=== PATIENT | female | born 1960 | race Caucasian/White ===

== ENCOUNTER 2021-06-12 10:42 | Inpatient (IN) ==
[2021-06-12] MEDS ORDERED: 0.9 % SODIUM CHLORIDE 500 ML IV ONE (11:47)
[2021-06-12 12:23] LABS: POC Blood Urea Nitrogen 41 mg/dL (6-20); POC CO2 25 mmol/L (22-30); POC Calcium, Ionized 1.22 mmEq/L (1.16-1.32); POC Chloride 103 mEq/L (96-108); POC Creatinine 1.7 mg/dL (0.6-1.2); POC Glucose, Random 100 mg/dL (70-105); POC Hematocrit 40 % (36-48); POC Sodium 139 mEq/L (133-145)
--- NOTE | 2021-06-12 12:32 | Emergency Department Note ---
Weakness HPI General Chief complaint: Weakness Stated complaint: slurred speech, frequent falls x 1 month. Time Seen by Provider: 06/12/21 11:47 Source: patient Mode of arrival: ambulatory Limitations: no limitations History of Present Illness HPI Narrative: This a 61-year-old female patient with history of OSVALDO noncompliant with CPAP, T2DM, hyperlipidemia, and CAD status post stent to the OM in the remote past who presents to the ER with 1 month of weakness and increasing recurrent falls up to 4 times a day. notes that she falls asleep very easily and she feels that her falls are secondary to tiredness. She denies lightheadedness or dizziness preceding her falls. Denies heart palpitations. Denies chest pain. Patient has a history of CAD with stenting to the obtuse marginal in the remote past. 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 She does note that she has increasing lower extremity edema. She does take Lasix daily. Other medications include antihypertensives, statin, and metformin. She notes that her depression was quite severe several months ago and she was started on citalopram. She did not tolerate this secondary to drowsiness. She has been afraid to drive due to her issues with falling asleep. EKG shows normal sinus rhythm with a rate of 69 bpm she has a first-degree AV block. She has nonspecific ST changes in the precordial leads with T wave inversions noted in V1 through V6. I do not have an old EKG review. Smokes daily marijuana. Related Data Home Medications Medication Instructions Recorded Confirmed aspirin 81 mg chewable tablet 81 mg PO QDAY 07/12/17 05/28/21 cholecalciferol (vitamin D3) 50 50 mcg PO QDAY 11/17/20 05/28/21 mcg (2,000 unit) capsule zinc 50 mg tablet 50 mg PO QDAY 11/17/20 05/28/21 citalopram 10 mg tablet 5 mg PO QDAY tab 12/07/20 05/28/21 Previous Rx's Medication Instructions Recorded atorvastatin 80 mg tablet 80 mg PO QDAY #90 tab 06/08/20 candesartan 4 mg tablet 4 mg PO QDAY #90 tab 08/30/20 furosemide 20 mg tablet See Rx Instructions .ROUTE 03/09/21 .COMPLEX #30 tab metoprolol tartrate 25 mg tablet See Rx Instructions .ROUTE 03/26/21 .COMPLEX #90 tab gabapentin 100 mg capsule 600 mg PO QHS #180 cap 05/11/21 lorazepam 1 mg tablet 1 mg PO QHS #30 tab 05/11/21 metformin 500 mg tablet 500 mg PO QDAY #30 tab 05/22/21 Allergies Allergy/AdvReac Type Severity Reaction Status Date / Time No Known Drug Allergies Allergy Verified 05/28/21 09:47 Review of Systems ROS ROS Narrative: Narrative: All systems ED: reviewed and negative except as stated. [facility] Narrative Patient History Narrative: Narrative: Medical/Surgical/Family History All Active Problems (Updated 06/12/21 @ 16:59 by Skye Covarrubias PA-C) OSVALDO (obstructive sleep apnea) (Acute) Acute respiratory failure with hypoxia and hypercarbia (Acute) CHF (congestive heart failure) (Acute) Peripheral edema (Acute) Hypercalcemia (Acute) Ecchymosis (Acute) Shoulder pain (Acute) Blepharitis (Acute) Major depressive disorder (Chronic) Hot flashes due to menopause (Chronic) Renal insufficiency (Chronic) Nausea (Chronic) Decreased libido (Chronic) OSVALDO (obstructive sleep apnea) (Chronic) CAD (coronary artery disease) (Chronic) Atherosclerotic heart disease of tribe coronary artery without angina pectoris (Chronic) Essential hypertension (Chronic) 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) Pre-diabetes (Chronic) IFG (impaired fasting glucose) (Chronic) Hyperlipidemia (Chronic) 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, unspecified (Chronic) Lesion of plantar nerve, left lower limb (Chronic) Medical History (Updated 06/12/21 @ 16:59 by Skye Covarrubias PA-C) Acute kidney injury Atherosclerotic heart disease of tribe coronary artery without angina pectoris CAD (coronary artery disease) 2 stints, 2005, 2012 CKD (chronic kidney disease) stage 3, GFR 30-59 ml/min Decreased libido resolved 02/08/16 Deficiency of other specified B group vitamins Essential hypertension Hereditary and idiopathic neuropathy, unspecified Hot flashes due to menopause Hyperlipidemia IFG (impaired fasting glucose) Lesion of plantar nerve, left lower limb Major depressive disorder Nausea resolved 02/08/16 OSVALDO (obstructive sleep apnea) Pre-diabetes Renal insufficiency resolved 07/29/18 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 Urinary tract infection Surgical History Acquired absence of both cervix and uterus Acquired absence of both ovaries History of appendectomy (~1985) History of blepharoplasty (~2015) History of cholecystectomy (~1985) History of surgery (~2005) stent placement, 2005 and 2012 History of tonsillectomy and adenoidectomy History of total abdominal hysterectomy and bilateral salpingo-oophorectomy (~2007) Status post debridement of bone spur (~2009) heel Family History Father , age 72 Diabetes mellitus COPD (chronic obstructive pulmonary disease) CHF (congestive heart failure) Alcoholism Heart disease Hypertension Mother , age 62 Lung cancer Grandfather Multiple sclerosis Paternal Lung cancer Maternal Grandmother COPD (chronic obstructive pulmonary disease) Paternal Son Down's syndrome Social History Smoking Status: Former smoker Alcohol Intake Frequency: a few times a week Substance Use: marijuana Exam Narrative Narrative: General: AOx3, NAD, sleepy but arousable. Pleasant and conversant. HEENT: PERRL, EOMI, normocephalic. Ecchymosis to the right orbit and nose consistent with fall. Moist mucous membranes. Normal facies and normal dentition. Chest: Symmetric, no pain to palpation Respiratory: Bilateral crackles. No respiratory distress. Unlabored breathing. Audible cough Heart: Regular rate and rhythm, no murmurs/clicks/rubs. Abdomen: Non-tender, Non distended, normal bowel tones. No organomegaly. Extremities: Warm and well perfused. Bilateral 2+ pitting edema. DP 2+ bilaterally. No venous stasis. Neuro: No focal deficits. Cranial nerves II-XII grossly normal. Skin: Warm dry, no rashes or lesions, no cyanosis. Psych: Normal mood and affect Heme/Lymph: No abnormal bruising General Limitations: no limitations Course Course Course Narrative: 61-year-old female presents for frequent falls and weakness Reevaluation(s) Reevaluation #1: CBC, CMP, chest x-ray, TSH, UA Reevaluation #2: CBC without leukocytosis. CMP with no electrolyte disturbances and creatinine 1.7, this is baseline from last year. TSH is within normal limits. Chest x-ray shows pulmonary edema consistent with heart failure. Urinalysis is completely normal. Head imaging and neck imaging are negative for acute fractures or intracranial bleeding. Patiently consistently dips down into the high 80s on room air while sleeping. Patient's VBG shows a pH of 7.28 and a PCO2 of 56. Give 40 mg IV Lasix for acute CHF exacerbation. I have reached out the hospitalist for admission if she is not safe to discharge home with frequent falls and untreated severe sleep apnea with hypercarbia. Reevaluation #3: I spoke with Dr. Caro and he request that I check a troponin and start her on BiPAP. He is planning to accept the patient for admission as long as her troponin is not greatly elevated. Vital Signs Vital signs: Vital Signs Temperature 97.3 F 06/12/21 10:43 Pulse Rate 73 06/12/21 10:43 Respiratory Rate 20 06/12/21 10:43 Blood Pressure 136/82 06/12/21 10:43 Pulse Oximetry (%) 88 L 06/12/21 10:43 Temperature 97.3 F 06/12/21 10:43 Pulse Rate 75 06/12/21 17:47 Respiratory Rate 16 06/12/21 17:47 Blood Pressure 105/67 06/12/21 17:46 Pulse Oximetry (%) 96 06/12/21 17:47 [facility] MDM Narrative Medical decision making narrative: Severe untreated OSVALDO Hypercarbia Respiratory acidosis Acute CHF exacerbation Patient has been given 40 mg of IV Lasix for volume overload. She is currently on CPAP and tolerating this. Head and cervical neck imaging were negative for acute fractures or intracranial bleeding. I have spoken with the hospitalist who has accepted the patient for admission. Lab Data Result diagrams: 06/12/21 12:03 Labs: Lab Results 06/12/21 06/12/21 06/12/21 Range/Units 12:00 12:02 12:03 WBC 6.8 (4.5-11.0) K/mcL RBC 3.77 (3.59-5.38) M/mcL Hgb 12.4 (11.2-15.7) g/dL Hct 38.6 (34.1-44.9) % POC Hct 40 (36-48) % MCV 102.4 H (80.0-100.0) fL MCH 32.9 (26.0-34.0) pg MCHC 32.1 (31.0-36.0) g/dL RDW 16.2 H (11.5-14.5) % Plt Count 131 L (140-440) K/mcL MPV 11.0 H (7.4-10.4) fL Neut % (Auto) 69.1 (38.0-78.0) % Lymph % (Auto) 18.6 (15.5-49.0) % [place] % (Auto) 10.2 (1.0-12.0) % Eos % (Auto) 1.2 (0.0-7.0) % Baso % (Auto) 0.9 (0.0-2.0) % Lymph # (Auto) 1.26 L (1.50-4.80) K/mcL [place] # (Auto) 0.69 (0.10-0.90) K/mcL Eos # (Auto) 0.08 (0.00-0.70) K/mcL Baso # (Auto) 0.06 (0.00-0.30) K/mcL Absolute Neutrophils 4.67 (1.80-8.00) K/mcL POC Sodium 139 (133-145) mEq/L POC Potassium 5.0 (3.3-5.1) mEql/L POC Chloride 103 (96-108) mEq/L POC Total CO2 25 (22-30) mmol/L POC BUN 41 H (6-20) mg/dL POC Creatinine 1.7 H (0.6-1.2) mg/dL POC Glucose 100 (70-105) mg/dL POC WB Ioniz Calcium 1.22 (1.16-1.32) mmEq/L NT-Pro-B Natriuret Pep 5093.0 H (<125.0) pg/mL TSH (0.27-5.01) uIU/mL Urine Color Urine Appearance (Clear) Urine pH (5.0-9.0) Ur Specific Salmon (1.000-1.035) Urine Protein (Negative) mg/dL Urine Glucose (UA) (Negative) mg/dL Urine Ketones (Negative) mg/dL Urine Occult Blood (Negative) mg/dL Urine Nitrate (Negative) Urine Bilirubin (Negative) mg/dL Urine Urobilinogen mg/dL Ur Leukocyte Esterase (Negative) /uL Ur Culture Indicated? POC Troponin I (0.02-0.08) ng/mL 06/12/21 06/12/21 06/12/21 Range/Units 12:03 13:05 16:13 WBC (4.5-11.0) K/mcL RBC (3.59-5.38) M/mcL Hgb (11.2-15.7) g/dL Hct (34.1-44.9) % POC Hct (36-48) % MCV (80.0-100.0) fL MCH (26.0-34.0) pg MCHC (31.0-36.0) g/dL RDW (11.5-14.5) % Plt Count (140-440) K/mcL MPV (7.4-10.4) fL Neut % (Auto) (38.0-78.0) % Lymph % (Auto) (15.5-49.0) % [place] % (Auto) (1.0-12.0) % Eos % (Auto) (0.0-7.0) % Baso % (Auto) (0.0-2.0) % Lymph # (Auto) (1.50-4.80) K/mcL [place] # (Auto) (0.10-0.90) K/mcL Eos # (Auto) (0.00-0.70) K/mcL Baso # (Auto) (0.00-0.30) K/mcL Absolute Neutrophils (1.80-8.00) K/mcL POC Sodium (133-145) mEq/L POC Potassium (3.3-5.1) mEql/L POC Chloride (96-108) mEq/L POC Total CO2 (22-30) mmol/L POC BUN (6-20) mg/dL POC Creatinine (0.6-1.2) mg/dL POC Glucose (70-105) mg/dL POC WB Ioniz Calcium (1.16-1.32) mmEq/L NT-Pro-B Natriuret Pep (<125.0) pg/mL TSH 2.65 (0.27-5.01) uIU/mL Urine Color Yellow Urine Appearance Clear (Clear) Urine pH 6.0 (5.0-9.0) Ur Specific Salmon 1.009 (1.000-1.035) Urine Protein Negative (Negative) mg/dL Urine Glucose (UA) Negative (Negative) mg/dL Urine Ketones Negative (Negative) mg/dL Urine Occult Blood Negative (Negative) mg/dL Urine Nitrate Negative (Negative) Urine Bilirubin Negative (Negative) mg/dL Urine Urobilinogen Negative mg/dL Ur Leukocyte Esterase Negative (Negative) /uL Ur Culture Indicated? No POC Troponin I 0.02 (0.02-0.08) ng/mL ED POC Tests ED POC Tests: OTTO - SARS Antigen Negative Discharge Plan Patient/Caregiver Discharge Instructions Pt seen by CANDY PULLER/PA only: Yes Clinical Impression: OSVALDO (obstructive sleep apnea), Acute respiratory failure with hypoxia and hypercarbia, CHF (congestive heart failure) Patient Disposition: Still a Patient Condition: Fair Follow up with: Piter Mohan DO [Primary Care Provider] - Prescriptions: No Action atorvastatin 80 mg tablet 80 mg PO QDAY Qty: 90 2RF candesartan 4 mg tablet 4 mg PO QDAY Qty: 90 2RF furosemide 20 mg tablet See Rx Instructions .ROUTE .COMPLEX Qty: 30 4RF Dose Instruction: TAKE ONE-HALF TABLET BY MOUTH ONCE DAILY EVERY MORNING Rx Instructions: TAKE ONE-HALF TABLET BY MOUTH ONCE DAILY EVERY MORNING metoprolol tartrate 25 mg tablet See Rx Instructions .ROUTE .COMPLEX Qty: 90 0RF Dose Instruction: TAKE 1 TABLET BY MOUTH TWICE DAILY Rx Instructions: TAKE 1 TABLET BY MOUTH TWICE DAILY lorazepam 1 mg tablet 1 mg PO QHS Qty: 30 2RF gabapentin 100 mg capsule 600 mg PO QHS Qty: 180 1RF Rx Instructions: Take 1-6 capsules by mouth once daily at bedtime for nerve pain metformin 500 mg tablet 500 mg PO QDAY Qty: 30 3RF aspirin 81 mg tablet,chewable 81 mg PO QDAY 0RF zinc 50 mg tablet 50 mg PO QDAY 0RF cholecalciferol (vitamin D3) 50 mcg (2,000 unit) capsule 50 mcg PO QDAY 0RF citalopram 10 mg tablet 5 mg PO QDAY 0RF
--- NOTE | 2021-06-12 12:32 | Cat Scan Report ---
CLINICAL INFORMATION: Trauma-fall COMPARISON: 12/17/2013 TECHNIQUE: 2.5 mm helical slices were obtained in the skull base to vertex. Following reconstruction, axial reformatted images were reviewed at bone and parenchymal windows. The exam was performed using radiation dose optimization techniques including, but not limited to, automated exposure control, adjustment of the mA and/or kV according to patient size and use of iterative reconstruction technique. FINDINGS: The ventricles, sulci, fissures, and cisterns are symmetrically enlarged compatible with mild age-related atrophy. No extra-axial fluid collections are identified. Mild patchy chronic ischemic changes, in the deep cerebral white matter, are expected for age. There is no hemorrhage, mass effect, or edema. Bone windows show no osseous abnormality. IMPRESSION: Mild atrophy and chronic ischemic changes in the deep cerebral white matter-expected for age and stable. No acute findings Interpreted and Authenticated by: Brandyn Bailon 06/12/21
--- NOTE | 2021-06-12 12:41 | Cat Scan Report ---
CLINICAL INFORMATION: Trauma-fall COMPARISON: None. TECHNIQUE: 0.625 mm axial slices were obtained through the facial region. Following reconstruction, 2.5 millimeter axial, sagittal and coronal reformations were obtained and reviewed in bone and soft tissue windows.The exam was performed using radiation dose optimization techniques including, but not limited to, automated exposure control, adjustment of the mA and/or kV according to patient size and use of iterative reconstruction technique. FINDINGS: There is no fracture within the facial skeleton or the visualized calvaria. The orbits including the ocular globes intra and extraconal fat, optic nerves and extraocular muscles are unremarkable. The paranasal sinuses show only minimal mucosal thickening in the left maxillary air cell. Mild leftward nasal septal deviation and mild mucosal thickening in nasal septum and turbinates. TMJs are normal in width and alignment without arthritic change. Soft tissues show calcific plaque in the carotid bifurcations. There is also heavy ossification of the stylohyoid ligaments. IMPRESSION: 1. No fracture or posttraumatic change. 2. Mild rhinitis. 3. Ossification of stylohyoid ligaments. 4. Chronic bifurcation calcification-please correlate with bruit Interpreted and Authenticated by: Brandyn Bailon 06/12/21
--- NOTE | 2021-06-12 12:46 | Cat Scan Report ---
CLINICAL INFORMATION: Trauma-fall COMPARISON: None. TECHNIQUE: 0.625 mm helical slices were obtained from the skull base through the superior T2 end plate, and following reconstruction, 2.5 mm sagittal, coronal and axial reformations were then processed. The exam was reviewed at bone and soft tissue windows. The exam was performed using radiation dose optimization techniques including, but not limited to, automated exposure control, adjustment of the mA and/or kV according to patient size and use of iterative reconstruction technique. FINDINGS: The cervical spine is normal in curvature and alignment. There is no fracture or other osseous abnormality. Soft tissues show heavy calcification of stylohyoid ligament. There is also moderate calcific plaque in the carotid bifurcations. No posttraumatic change seen within the soft tissues. The C2-3, C3-4, C4-5 disc levels are normal. At C5-6, mild broad disc protrusion mildly impinges the anterior thecal sac. A 10 x 8 mm dural-based mass, adjacent to the left posterior C6 vertebral body, extends into the left lateral recess. It demonstrates peripheral rim calcification with low attenuation centrally. It is suspicious for a meningioma or less likely neurofibroma or partially calcified disc fragment. It should impinge the exiting left C7 nerve root. C7-T1 disc level is normal. IMPRESSION: 1. No fracture or posttraumatic change. 2. 10 x 8 mm dural-based mass, adjacent to the posterior left C5 vertebral body, impinging the exiting left C7 nerve root. It is suspicious for a meningioma. Neurofibroma or partially calcified disc fragment be less likely. If the patient is a surgical candidate, consider cervical MRI with gadolinium 3. Multilevel degeneration Interpreted and Authenticated by: Brandyn Bailon 06/12/21
[2021-06-12 12:48] LABS: Basophils # (Auto) 0.06 K/mcL (0.00-0.30); Basophils % (Auto) 0.9 % (0.0-2.0); Eosinophils # (Auto) 0.08 K/mcL (0.00-0.70); Eosinophils % (Auto) 1.2 % (0.0-7.0); Hematocrit 38.6 % (34.1-44.9); Hemoglobin 12.4 g/dL (11.2-15.7); Lymphocytes # (Auto) 1.26 K/mcL (1.50-4.80); Lymphocytes % (Auto) 18.6 % (15.5-49.0); Mean Cell Volume 102.4 fL (80.0-100.0); Mean Corpuscular HGB Conc 32.1 g/dL (31.0-36.0); Monocytes # (Auto) 0.69 K/mcL (0.10-0.90); Monocytes % (Auto) 10.2 % (1.0-12.0); Neutrophils % (Auto) 69.1 % (38.0-78.0); Platelet Count 131 K/mcL (140-440); RBC 3.77 M/mcL (3.59-5.38); Red Cell Distribution Width 16.2 % (11.5-14.5); WBC 6.8 K/mcL (4.5-11.0)
--- NOTE | 2021-06-12 12:48 | XRay Report ---
CLINICAL INFORMATION: Trauma COMPARISON: 10/26/2010 TECHNIQUE: PA and Lateral views FINDINGS: Moderate cardiomegaly is new since the remote x-ray. Mediastinum is otherwise normal. The upper lobe pulmonary vessels show slight cephalization. Minimal interstitial edema is seen in the periphery of the lower lobes. Small right pleural effusion noted. IMPRESSION: Borderline CHF. No posttraumatic change Interpreted and Authenticated by: Brandyn Bailon 06/12/21
[2021-06-12] MEDS ORDERED: FUROSEMIDE 40 MG/4 ML VIAL IV ONE (14:12)
[2021-06-12 14:28] LABS: Appearance,Urine CLEAR (Clear); Bilirubin,Urine Negative (Negative); Color,Urine YELLOW; Culture Indicated,Urine No; Glucose,Urine (UA) Negative (Negative); Ketones,Urine Negative (Negative); Leukocyte Esterase,Urine Negative /uL (Negative); Nitrate,Urine Negative (Negative); Protein,Urine Negative (Negative); Specific Gravity,Urine 1.009 (1.000-1.035); Urine Blood Negative (Negative); Urobilinogen,Urine Negative
--- NOTE | 2021-06-12 17:42 | Internal Med History&Physical ---
HPI History of Present Illness Patient information: Note initiated : 06/12/21 at 5:41 pm Service Date, if different from initiated Date: [] Patient: Margarita Guzman a 61 y/o F admitted on for slurred speech, frequent falls x 1 month.. Chief Complaint: [] History of present illness: Ms. Guzman is a 61 year old female with a history of chronic kidney disease stage III, coronary artery disease status post stent, congestive heart failure on Lasix, type 2 diabetes mellitus, depression, untreated obstructive sleep apnea who presented to the emergency department for generalized weakness, multiple falls and feeling extremely tired. The patient is unable to provide a history in the emergency department as she was sleeping soundly. History was taken from the patient's family member who was at the patient's bedside. The patient's symptoms have been progressively worsening for about 4 weeks. In addition, the patient has been having bilateral lower extremity edema for about the same period of time. She has had multiple falls and suffered minor injuries. In the emergency department, the patient had an oxygen requirement while she was sleeping. Vitals were otherwise unremarkable. CBC was negative for leukocytosis, no anemia, platelets were 131. Wcigv-ey-utma creatinine was 1.7, BUN was 41. NT proBNP was elevated at 5093, troponin was normal. Venous blood gas showed a respiratory acidosis with a pH of 7.28, pCO2 of 56.EKG just showed normal sinus rhythm, negative for acute ischemic changes. Chest x-ray was read by radiology and interpreted as borderline congestive heart failure. Additionally the patient had a cervical spine CT, facial and head CT which did not show any fractures or acute changes.the cervical spine CT showed a 8 x 10 mm dural based mass adjacent to the posterior left C5 vertebral body impinging on the exiting left C7 nerve root likely a meningioma. Hospital medicine was consulted for admission. Review of systems: Unable to obtain due to extreme lethargy Physical exam Head: Atraumatic, normal inspection. Eyes: normal appearance, no scleral icterus. Neck: full ROM Respiratory: BiPAP, no respiratory distress. Cardiovascular: normal rate and rhythm, S1, S2. GI/Abdominal: Obesely distended, soft, nontender, no guarding. Extremities: Bilateral lower extremity pitting edema Neurological: CN II-XII intact, intact motor, intact sensation. Psychiatric: normal mood. Skin: warm, normal color PFSH PFSH All Active Problems (Updated 06/12/21 @ 16:59 by Skye Covarrubias PA-C) OSVALDO (obstructive sleep apnea) (Acute) Acute respiratory failure with hypoxia and hypercarbia (Acute) CHF (congestive heart failure) (Acute) Peripheral edema (Acute) Hypercalcemia (Acute) Ecchymosis (Acute) Shoulder pain (Acute) Blepharitis (Acute) Major depressive disorder (Chronic) Hot flashes due to menopause (Chronic) Renal insufficiency (Chronic) Nausea (Chronic) Decreased libido (Chronic) OSVALDO (obstructive sleep apnea) (Chronic) CAD (coronary artery disease) (Chronic) Atherosclerotic heart disease of [place] coronary artery without angina pectoris (Chronic) Essential hypertension (Chronic) 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) Pre-diabetes (Chronic) IFG (impaired fasting glucose) (Chronic) Hyperlipidemia (Chronic) 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, unspecified (Chronic) Lesion of plantar nerve, left lower limb (Chronic) Medical History (Updated 06/12/21 @ 16:59 by Skye Covarrubias PA-C) Acute kidney injury Atherosclerotic heart disease of [place] coronary artery without angina pectoris CAD (coronary artery disease) 2 stints, 2005, 2012 CKD (chronic kidney disease) stage 3, GFR 30-59 ml/min Decreased libido resolved 02/08/16 Deficiency of other specified B group vitamins Essential hypertension Hereditary and idiopathic neuropathy, unspecified Hot flashes due to menopause Hyperlipidemia IFG (impaired fasting glucose) Lesion of plantar nerve, left lower limb Major depressive disorder Nausea resolved 02/08/16 OSVALDO (obstructive sleep apnea) Pre-diabetes Renal insufficiency resolved 07/29/18 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 Urinary tract infection Surgical History Acquired absence of both cervix and uterus Acquired absence of both ovaries History of appendectomy (~1985) History of blepharoplasty (~2015) History of cholecystectomy (~1985) History of surgery (~2005) stent placement, 2005 and 2012 History of tonsillectomy and adenoidectomy History of total abdominal hysterectomy and bilateral salpingo-oophorectomy (~2007) Status post debridement of bone spur (~2009) heel Family History Father , age 72 Diabetes mellitus COPD (chronic obstructive pulmonary disease) CHF (congestive heart failure) Alcoholism Heart disease Hypertension Mother , age 62 Lung cancer Grandfather Multiple sclerosis Paternal Lung cancer Maternal Grandmother COPD (chronic obstructive pulmonary disease) Paternal Son Down's syndrome Social History marital status: alcohol intake frequency: a few times a week substance use type: marijuana MEDS/ALLERGIES Home Medications and Allergies Home Medications Medication Instructions Recorded Confirmed Type aspirin 81 mg chewable tablet 81 mg PO QDAY 07/12/17 05/28/21 History atorvastatin 80 mg tablet 80 mg PO QDAY #90 tab 06/08/20 05/28/21 Rx candesartan 4 mg tablet 4 mg PO QDAY #90 tab 08/30/20 05/28/21 Rx cholecalciferol (vitamin D3) 50 50 mcg PO QDAY 11/17/20 05/28/21 History mcg (2,000 unit) capsule zinc 50 mg tablet 50 mg PO QDAY 11/17/20 05/28/21 History citalopram 10 mg tablet 5 mg PO QDAY tab 12/07/20 05/28/21 History furosemide 20 mg tablet See Rx Instructions .ROUTE 03/09/21 05/28/21 Rx .COMPLEX #30 tab metoprolol tartrate 25 mg tablet See Rx Instructions .ROUTE 03/26/21 05/28/21 Rx .COMPLEX #90 tab gabapentin 100 mg capsule 600 mg PO QHS #180 cap 05/11/21 05/28/21 Rx lorazepam 1 mg tablet 1 mg PO QHS #30 tab 05/11/21 05/28/21 Rx metformin 500 mg tablet 500 mg PO QDAY #30 tab 05/22/21 05/28/21 Rx Allergies Allergy/AdvReac Type Severity Reaction Status Date / Time No Known Drug Allergies Allergy Verified 05/28/21 09:47 EXAM Constitutional Vitals: Temp Pulse Resp BP Pulse Ox 97.3 F 78 15 114/66 93 06/12/21 10:43 06/12/21 16:31 06/12/21 16:31 06/12/21 16:31 06/12/21 16:31 DATA Data Completed and Pending Labs: Labs from last 24 hours 06/12/21 06/12/21 06/12/21 16:13 13:05 12:03 WBC RBC Hgb Hct POC Hct MCV MCH MCHC RDW Plt Count MPV Neut % (Auto) Lymph % (Auto) [place] % (Auto) Eos % (Auto) Baso % (Auto) Lymph # (Auto) [place] # (Auto) Eos # (Auto) Baso # (Auto) Absolute Neutrophils POC Sodium POC Potassium POC Chloride POC Total CO2 POC BUN POC Creatinine POC Glucose POC WB Ioniz Calcium NT-Pro-B Natriuret Pep TSH 2.65 Urine Color Yellow Urine Appearance Clear Urine pH 6.0 Ur Specific [place] 1.009 Urine Protein Negative Urine Glucose (UA) Negative Urine Ketones Negative Urine Occult Blood Negative Urine Nitrate Negative Urine Bilirubin Negative Urine Urobilinogen Negative Ur Leukocyte Esterase Negative Ur Culture Indicated? No POC Troponin I 0.02 06/12/21 06/12/21 06/12/21 12:03 12:02 12:00 WBC 6.8 RBC 3.77 Hgb 12.4 Hct 38.6 POC Hct 40 MCV 102.4 H MCH 32.9 MCHC 32.1 RDW 16.2 H Plt Count 131 L MPV 11.0 H Neut % (Auto) 69.1 Lymph % (Auto) 18.6 [place] % (Auto) 10.2 Eos % (Auto) 1.2 Baso % (Auto) 0.9 Lymph # (Auto) 1.26 L [place] # (Auto) 0.69 Eos # (Auto) 0.08 Baso # (Auto) 0.06 Absolute Neutrophils 4.67 POC Sodium 139 POC Potassium 5.0 POC Chloride 103 POC Total CO2 25 POC BUN 41 H POC Creatinine 1.7 H POC Glucose 100 POC WB Ioniz Calcium 1.22 NT-Pro-B Natriuret Pep 5093.0 H TSH Urine Color Urine Appearance Urine pH Ur Specific [place] Urine Protein Urine Glucose (UA) Urine Ketones Urine Occult Blood Urine Nitrate Urine Bilirubin Urine Urobilinogen Ur Leukocyte Esterase Ur Culture Indicated? POC Troponin I A/P Narrative A/P Narrative: Assessment: 61 year old female with a history of chronic kidney disease stage III, coronary artery disease status post stent, congestive heart failure on Lasix, type 2 diabetes mellitus, depression, untreated obstructive sleep apnea who presented to the emergency department for generalized weakness, multiple falls and feeling extremely tired. In the ED, the patient was found to have respiratory acidosis and bilateral lower extremity concerning for heart failure. #Respiratory acidosis, possibly a chronic #Acute on chronic congestive heart failure #Concern for right-sided heart failure #Generalized weakness and fatigue #Chronic kidney disease stage III #Type 2 diabetes mellitus #Coronary artery disease, stable #Depression #Obstructive sleep apnea, untreated #Obesity BMI 32 Plan -Start Lasix 40 mg IV twice daily. -BiPAP for now, repeat VBG. -Oxygen supplementation as needed. -Monitor volume status, urine output, renal function. -Check a D-dimer and TSH. -Correction Humalog SSI-low. -Transthoracic echocardiogram. -Home medication reconciliation, resume essential meds. 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 -Low-sodium diet. -PT consult. -DVT prophylaxis: Heparin SQ -CODE STATUS: Full -Disposition: Home when stable, probably referral to cardiology. Time Spent With Patient Time: Total time spent is greater than 50% in coordination of care (as documented) at patient's floor/unit and/or counseling patient:
[2021-06-12] MEDS ORDERED: DEXTROSE 31 GM ORAL.SUSP PO PRN (19:38)
[2021-06-12] MEDS ORDERED: ALBUTEROL SULFATE 2.5 MG/3 ML NEBULIZER NEB PRN (19:38)
[2021-06-12] MEDS ORDERED: DEXTROSE 50% 50 ML VIAL IV PRN (19:38)
[2021-06-12] MEDS ORDERED: ACETAMINOPHEN 325 MG TABLET PO PRN (19:38)
[2021-06-12] MEDS ORDERED: SENNOSIDES 1 TABLET PO PRN (19:38)
[2021-06-12] MEDS ORDERED: LACTULOSE 20 GM/30 ML ORAL.SOL PO PRN (19:38)
[2021-06-12] MEDS: FUROSEMIDE 40 MG/4 ML VIAL IV SCH (20:11)
[2021-06-12] MEDS ORDERED: LORazepam 1 MG TABLET PO PRN (21:00)
[2021-06-12] MEDS: HEPARIN 5,000 UNIT/ML VIAL SQ SCH (21:41)
[2021-06-12] MEDS: DOCUSATE SODIUM 100 MG CAPSULE PO SCH (21:41)
[2021-06-12] MEDS: 0.9 % SODIUM CHLORIDE 10 ML SYRINGE IV SCH (21:41)
[2021-06-12] MEDS: INSULIN LISPRO 1 UNIT/0.01 ML UNIT SQ SCH (21:53)
[2021-06-12] MEDS ORDERED: GABAPENTIN 400 MG CAPSULE PO ONE (22:06)
[2021-06-12] MEDS ORDERED: LORazepam 1 MG TABLET ONE (22:15)
[2021-06-12] MEDS ORDERED: GABAPENTIN 100 MG CAPSULE PO ONE (22:34)
[2021-06-12] MEDS ORDERED: GABAPENTIN 300 MG CAPSULE ONE (22:34)
[2021-06-13 06:14] LABS: ABG Methemoglobin 0.2 % (0.4-1.5); Total Hemoglobin 12.4 gm/Dl (12.0-15.0); VBG Base Excess 1 (-2-3); VBG HCO3 26.2 mmol/L (24.0-28.0); VBG PCO2 43.3 mmHg (41.0-51.0); VBG PO2 74.5 mmHg (25.0-40.0); VBG Total CO2 27.5 mmol/L (25.0-29.0)
[2021-06-13 06:34] LABS: Albumin 2.7 gm/dL (3.2-5.2); Blood Urea Nitrogen 33 mg/dL (8-23); Calcium 8.4 mg/dL (8.6-10.4); Carbon Dioxide 25 mmol/L (22-30); Chloride 104 mmol/L (96-108); Glomerular Filtration Rate 54; Glucose 85 mg/dL (70-105); Phosphorous 3.4 mg/dL (2.5-4.5)
[2021-06-13 06:40] LABS: Basophils # (Auto) 0.03 K/mcL (0.00-0.30); Basophils % (Auto) 0.5 % (0.0-2.0); Eosinophils # (Auto) 0.11 K/mcL (0.00-0.70); Hemoglobin 11.3 g/dL (11.2-15.7); Lymphocytes # (Auto) 1.31 K/mcL (1.50-4.80); Lymphocytes % (Auto) 23.9 % (15.5-49.0); Mean Cell Volume 102.3 fL (80.0-100.0); Mean Corpuscular HGB Conc 32.3 g/dL (31.0-36.0); Mean Platelet Volume 11.1 fL (7.4-10.4); Monocytes # (Auto) 0.59 K/mcL (0.10-0.90); Monocytes % (Auto) 10.7 % (1.0-12.0); Neutrophils % (Auto) 62.9 % (38.0-78.0); Platelet Count 124 K/mcL (140-440); RBC 3.42 M/mcL (3.59-5.38); Red Cell Distribution Width 16.3 % (11.5-14.5); WBC 5.5 K/mcL (4.5-11.0)
[2021-06-13] MEDS: 0.9 % SODIUM CHLORIDE 10 ML SYRINGE IV SCH ×3 (07:21→20:33)
[2021-06-13] MEDS: INSULIN LISPRO 1 UNIT/0.01 ML UNIT SQ SCH ×4 (07:23→20:33)
[2021-06-13] MEDS: FUROSEMIDE 40 MG/4 ML VIAL IV SCH ×2 (07:48→16:06)
[2021-06-13] MEDS: DOCUSATE SODIUM 100 MG CAPSULE PO SCH ×2 (09:04→20:16)
[2021-06-13] MEDS: HEPARIN 5,000 UNIT/ML VIAL SQ SCH ×2 (09:04→20:17)
[2021-06-13] MEDS ORDERED: IOPAMIDOL 100 ML BOTTLE IV ONE (09:30)
--- NOTE | 2021-06-13 10:12 | Cat Scan Report ---
CLINICAL INFORMATION: Hypoxia. Elevated d-dimer COMPARISON: CT pulmonary angiogram 03/17/2013 TECHNIQUE: 80ml of Isovue-370 were injected intravenously. Using SmartPrep to maximize pulmonary artery opacification, .625mm helical slices were obtained from the lung apices through the lung bases. Following reconstruction, 2.5 mm sagittal, coronal, and axial reformations were processed. The exam was reviewed at mediastinal, lung, and bone windows. The exam was performed using radiation dose optimization techniques including, but not limited to, automated exposure control, adjustment of the mA and/or kV according to patient size and use of iterative reconstruction technique. FINDINGS: Pulmonary parenchymal windows a band of atelectasis or fibrosis extending across the right upper lobe. There is also moderate subsegmental atelectasis and/or fibrosis in the lingula and the anterior basilar segment left lower lobe. There is mild edema in the interlobular septa. No sarah infiltrates. Small bilateral pleural effusions have developed. The mediastinal windows show moderate cardiomegaly-increased from previous exam. All pulmonary arteries are now moderately distended. No emboli identified. The thoracic aorta is normal diameter. There is no adenopathy in the mediastinal, hilar or axillary regions. The esophagus shows small hiatal hernia as before. The thyroid is unremarkable. Bones and soft tissues of the chest wall show no abnormality. Images of the superior abdomen moderate perinephric stranding of both kidneys. Heavy calcification in the left renal artery origin could indicate stenosis. The liver, spleen, adrenal glands and pancreas are grossly normal. IMPRESSION: 1. No evidence of pulmonary embolus. 2. Mild/moderate congestive heart failure. 3. Slight decreased attenuation kidneys and perinephric stranding which could indicate nephritis. Consider correlation with urinalysis and renal ultrasound. Interpreted and Authenticated by: Brandyn Bailon 06/13/21
[2021-06-13] MEDS: ONDANSETRON 4 MG/2 ML VIAL IV PRN (11:23)
--- NOTE | 2021-06-13 14:04 | Internal Med Progress Note ---
SUBJECTIVE Subjective Patient information: Note initiated : 06/13/21 at 2:04 pm Service Date, if different from initiated Date: [] Patient: Margarita Guzman a 61 y/o F admitted on 06/12/21 for slurred speech, frequent falls x 1 month.. Chief Complaint: [] Interval history: Ms. Guzman is a 61 year old female with a history of chronic kidney disease stage III, coronary artery disease status post stent, congestive heart failure on Lasix, type 2 diabetes mellitus, depression, untreated obstructive sleep apnea who presented to the emergency department for generalized weakness, multiple falls and feeling extremely tired. The patient is unable to provide a history in the emergency department as she was sleeping soundly. History was taken from the patient's family member who was at the patient's bedside. The patient's symptoms have been progressively worsening for about 4 weeks. In addition, the patient has been having bilateral lower extremity edema for about the same period of time. She has had multiple falls and suffered minor injurie s. In the emergency department, the patient had an oxygen requirement while she was sleeping. Vitals were otherwise unremarkable. CBC was negative for leukocytosis, no anemia, platelets were 131. Kmpvq-gg-kyui creatinine was 1.7, BUN was 41. NT proBNP was elevated at 5093, troponin was normal. Venous blood gas showed a respiratory acidosis with a pH of 7.28, pCO2 of 56.EKG just showed normal sinus rhythm, negative for acute ischemic changes. Chest x-ray was read by radiology and interpreted as borderline congestive heart failure. Additionally the patient had a cervical spine CT, facial and head CT which did not show any fractures or acute changes.the cervical spine CT showed a 8 x 10 mm dural based mass adjacent to the posterior left C5 vertebral body impinging on the exiting left C7 nerve root likely a meningioma. Hospital medicine was consulted for admission. 06/13 Alert and oriented today, hypercapnia resolved, diuresing well. CTA chest was negative for PE. TTE report pending. Physical exam Head: Atraumatic, normal inspection. Eyes: normal appearance, no scleral icterus. Neck: full ROM Respiratory: BiPAP, no respiratory distress. Cardiovascular: normal rate and rhythm, S1, S2. GI/Abdominal: Obesely distended, soft, nontender, no guarding. Extremities: Bilateral lower extremity pitting edema Neurological: CN II-XII intact, intact motor, intact sensation. Psychiatric: normal mood. Skin: warm, normal color Constitutional Vitals: Vital Signs Temp Pulse Resp BP Pulse Ox 97.9 F 71 14 114/83 94 06/13/21 12:05 06/13/21 14:03 06/13/21 08:22 06/13/21 14:01 06/13/21 14:03 Period Temp Pulse Resp BP Sys/Irwin Pulse Ox Last 24 Hr 97.6 F-99.8 F 69-91 13-28 95-141/51-128 91-100 Intake and Output 06/13/21 06/13/21 06/13/21 05:59 13:59 21:59 Intake Total 480 240 Output Total 400 350 Balance 80 -110 Intake & Output: Intake & Output 06/13/21 06/13/21 06/13/21 05:59 13:59 21:59 Intake Total 480 240 Output Total 400 350 Balance 80 -110 Intake: Oral 480 240 Output: Void Amount 400 350 Other: Meal Nourishment/Supplement Breakfast Percent of Meal Consumed 100% 10% Feeding Ability Assist with Tray Set Up Independent Urine Appearance Clear Clear Urine Color Bright Yellow Dark Yellow Urine Odor Normal Stool Size Small Small Stool Color Brown Brown Stool Consistency Soft Loose Formed # Bowel Movements 1 1 OBJ DATA Labs CBC & Chem 7: 06/13/21 05:51 06/13/21 05:51 Labs: Abnormal Lab Results 06/13/21 06/13/21 06/13/21 05:52 05:51 05:51 RBC 3.42 L MCV 102.3 H RDW 16.3 H Plt Count 124 L MPV 11.1 H Lymph # (Auto) 1.31 L D-Dimer ABG Methemoglobin 0.2 L VBG pO2 74.5 H VBG O2 Saturation 91.0 H Carboxyhemoglobin 4.0 H POC BUN BUN 33 H POC Creatinine Calcium 8.4 L NT-Pro-B Natriuret Pep Albumin 2.7 L 06/12/21 06/12/21 06/12/21 12:03 12:03 12:02 RBC MCV 102.4 H RDW 16.2 H Plt Count 131 L MPV 11.0 H Lymph # (Auto) 1.26 L D-Dimer 3.56 H ABG Methemoglobin VBG pO2 VBG O2 Saturation Carboxyhemoglobin POC BUN 41 H BUN POC Creatinine 1.7 H Calcium NT-Pro-B Natriuret Pep Albumin 06/12/21 12:00 RBC MCV RDW Plt Count MPV Lymph # (Auto) D-Dimer ABG Methemoglobin VBG pO2 VBG O2 Saturation Carboxyhemoglobin POC BUN BUN POC Creatinine Calcium NT-Pro-B Natriuret Pep 5093.0 H Albumin Meds: Medications Acetaminophen (Acetaminophen 325 Mg Tablet) 650 mg PO Q6HP PRN; Protocol PRN Reason: Per Pain Protocol/Fever > 101 Albuterol Sulfate (Albuterol Sulfate 2.5 Mg/3 Ml Nebulizer) 2.5 mg NEB Q4HRT PRN PRN Reason: wheezing Aspirin (Aspirin 81 Mg Tab.Chew) 81 mg PO HS KAYLEE Atorvastatin Calcium (Atorvastatin 40 Mg Tablet) 80 mg PO HS KAYLEE Dextrose (Dextrose 50% 50 Ml Vial) 0 ml IV UD PRN PRN Reason: Per Sliding Scale Diagnostic Test (Pha) (Accu-Chek 1 Each Strip) 1 each FS [facility] Last Admin: 06/13/21 11:24 Dose: 1 each Documented by: Docusate Sodium (Docusate Sodium 100 Mg Capsule) [address] [facility] Last Admin: 06/13/21 09:04 Dose: Not Given Documented by: Furosemide (Furosemide 40 Mg/4 Ml Vial) [address] [facility] Last Admin: 06/13/21 07:48 Dose: 40 mg Documented by: Gabapentin (Gabapentin 400 Mg Capsule) 400 mg PO HS KAYLEE Glucose (Dextrose 31 Gm Oral.Susp) 15 gm PO PRN PRN PRN Reason: Hypoglycemia Heparin Sodium (Porcine) (Heparin 5,000 Unit/Ml Vial) 5,[address] [facility] Last Admin: 06/13/21 09:04 Dose: 5,000 unit Documented by: Insulin Human Lispro (Insulin Lispro 1 Unit/0.01 Ml Unit) 0 unit SQ [facility]; Protocol Last Admin: 06/13/21 11:25 Dose: Not Given Documented by: Lactulose (Lactulose 20 Gm/30 Ml Oral.Charis) 10 gm PO DAILYP PRN PRN Reason: Constipation Ondansetron HCl (Ondansetron 4 Mg/2 Ml Vial) 4 mg IV Q4HP PRN; Protocol PRN Reason: Nausea And Vomiting Last Admin: 06/13/21 11:23 Dose: 4 mg Documented by: Pneumococcal Polyvalent Vaccine (Pneumococcal 23-Sharon P-Sac Vac 0.5 Ml Syringe) 0.5 ml IM .ONCE ONE Stop: 06/14/21 10:01 Senna (Sennosides 1 Tablet) 2 tab PO HSP PRN PRN Reason: Constipation Sodium Chloride (0.9 % Sodium Chloride 10 Ml Syringe) 10 ml IV Q8 KAYLEE Last Admin: 06/13/21 07:21 Dose: 10 ml Documented by: ABG Interpretation ABG results: 06/13/21 05:52 ABG Methemoglobin 0.2 L VBG pH 7.40 VBG pCO2 43.3 VBG pO2 74.5 H VBG HCO3 26.2 VBG Total CO2 27.5 VBG O2 Saturation 91.0 H VBG Base Excess 1 A/P Narrative A/P Narrative: Assessment: 61 year old female with a history of chronic kidney disease stage III, coronary artery disease status post stent, congestive heart failure on Lasix, type 2 diabetes mellitus, depression, untreated obstructive sleep apnea who presented to the emergency department for generalized weakness, multiple falls and feeling extremely tired. In the ED, the patient was found to have respiratory acidosis and bilateral lower extremity concerning for heart failure. #Respiratory acidosis, possibly a chronic #Acute on chronic congestive heart failure #Concern for right-sided heart failure #Generalized weakness and fatigue #Chronic kidney disease stage III #Type 2 diabetes mellitus #Coronary artery disease, stable #Depression #Obstructive sleep apnea, untreated #Obesity BMI 32 Plan -Continue Lasix 40 mg IV twice daily. -Oxygen supplementation as needed. -Monitor volume status, urine output, renal function. -Correction Humalog SSI-low. -Follow transthoracic echocardiogram report. -Essential home medications. 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 -Low-sodium diet. -PT consult. -DVT prophylaxis: Heparin SQ -CODE STATUS: Full -Disposition: Home when stable, probably referral to cardiology. Time Spent With Patient Time: Total time spent is greater than 50% in coordination of care (as documented) at patient's floor/unit and/or counseling patient: QUALITY VTE Deep Vein Thrombosis/Pulmonary Embolism Present on Admission: No
[2021-06-13] MEDS: METHOCARBAMOL 750 MG TABLET PO PRN (20:16)
[2021-06-13] MEDS: GABAPENTIN 400 MG CAPSULE PO SCH (20:17)
[2021-06-13] MEDS: ASPIRIN 81 MG TAB.CHEW PO SCH (20:17)
[2021-06-13] MEDS: ATORVASTATIN 40 MG TABLET PO SCH (20:17)
[2021-06-14] MEDS: 0.9 % SODIUM CHLORIDE 10 ML SYRINGE IV SCH ×3 (05:26→20:25)
[2021-06-14 06:42] LABS: Basophils # (Auto) 0.03 K/mcL (0.00-0.30); Basophils % (Auto) 0.5 % (0.0-2.0); Eosinophils # (Auto) 0.22 K/mcL (0.00-0.70); Hematocrit 36.1 % (34.1-44.9); Lymphocytes # (Auto) 1.35 K/mcL (1.50-4.80); Lymphocytes % (Auto) 24.6 % (15.5-49.0); Mean Cell Volume 101.4 fL (80.0-100.0); Mean Corpuscular HGB Conc 33.2 g/dL (31.0-36.0); Mean Platelet Volume 11.5 fL (7.4-10.4); Monocytes # (Auto) 0.64 K/mcL (0.10-0.90); Monocytes % (Auto) 11.7 % (1.0-12.0); Neutrophils % (Auto) 59.2 % (38.0-78.0); Platelet Count 121 K/mcL (140-440); RBC 3.56 M/mcL (3.59-5.38); Red Cell Distribution Width 15.9 % (11.5-14.5); WBC 5.5 K/mcL (4.5-11.0)
[2021-06-14 07:09] LABS: Albumin 2.9 gm/dL (3.2-5.2); Blood Urea Nitrogen 25 mg/dL (8-23); Calcium 8.6 mg/dL (8.6-10.4); Carbon Dioxide 31 mmol/L (22-30); Chloride 99 mmol/L (96-108); Glomerular Filtration Rate 61; Glucose 86 mg/dL (70-105); Phosphorous 3.3 mg/dL (2.5-4.5)
[2021-06-14] MEDS: INSULIN LISPRO 1 UNIT/0.01 ML UNIT SQ SCH ×4 (07:53→20:25)
[2021-06-14] MEDS: HEPARIN 5,000 UNIT/ML VIAL SQ SCH (09:38)
[2021-06-14] MEDS: FUROSEMIDE 40 MG/4 ML VIAL IV SCH ×3 (09:38→20:24)
[2021-06-14] MEDS ORDERED: PNEUMOCOCCAL 23-VAL P-SAC VAC 0.5 ML SYRINGE IM ONE (10:00)
[2021-06-14] MEDS: HYDROcodone/APAP 5/325MG TABLET PO PRN ×2 (10:52→20:24)
--- NOTE | 2021-06-14 11:21 | Internal Med Progress Note ---
SUBJECTIVE Subjective Patient information: Note initiated : 06/14/21 at 11:17 am Service Date, if different from initiated Date: [] Patient: Margarita Guzman a 61 y/o F admitted on 06/12/21 for slurred speech, frequent falls x 1 month.. Chief Complaint: [] Interval history: Ms. Guzman is a 61 year old female with a history of chronic kidney disease stage III, coronary artery disease status post stent, congestive heart failure on Lasix, type 2 diabetes mellitus, depression, untreated obstructive sleep apnea who presented to the emergency department for generalized weakness, multiple falls and feeling extremely tired. The patient is unable to provide a history in the emergency department as she was sleeping soundly. History was taken from the patient's family member who was at the patient's bedside. The patient's symptoms have been progressively worsening for about 4 weeks. In addition, the patient has been having bilateral lower extremity edema for about the same period of time. She has had multiple falls and suffered minor injuri es. In the emergency department, the patient had an oxygen requirement while she was sleeping. Vitals were otherwise unremarkable. CBC was negative for leukocytosis, no anemia, platelets were 131. Aijpl-fk-[id number] creatinine was 1.7, BUN was 41. NT proBNP was elevated at 5093, troponin was normal. Venous blood gas showed a respiratory acidosis with a pH of 7.28, pCO2 of 56.EKG just showed normal sinus rhythm, negative for acute ischemic changes. Chest x-ray was read by radiology and interpreted as borderline congestive heart failure. Additionally the patient had a cervical spine CT, facial and head CT which did not show any fractures or acute changes.the cervical spine CT showed a 8 x 10 mm dural based mass adjacent to the posterior left C5 vertebral body impinging on the exiting left C7 nerve root likely a meningioma. Hospital medicine was consulted for admission. 06/13 Alert and oriented today, hypercapnia resolved, diuresing well. CTA chest was negative for PE. TTE report pending. 06/14 Continues on 3 L/min nasal cannula oxygen, feels well. Increase Lasix 40 mg IV twice daily to 3 times daily frequency for improved diuresis. TTE showed a LVEF of 61%, moderate to severely dilated right ventricle with normal right ventricular systolic function, estimated pulmonary artery pressure 35 to 40 mmHg There was a severely dilated right atrium. Added [place] for right rib pain from a recent fall, no rib fractures noted on CTA chest. Transfer to [facility]. Physical exam Head: Atraumatic, normal inspection. Eyes: normal appearance, no scleral icterus. Neck: full ROM Respiratory: BiPAP, no respiratory distress. Cardiovascular: normal rate and rhythm, S1, S2. GI/Abdominal: Obesely distended, soft, nontender, no guarding. Extremities: Bilateral lower extremity pitting edema Neurological: CN II-XII intact, intact motor, intact sensation. Psychiatric: normal mood. Skin: warm, normal color Constitutional Vitals: Vital Signs Temp Pulse Resp BP Pulse Ox 99.1 F H 89 16 125/82 96 06/14/21 09:43 06/14/21 09:43 06/14/21 02:01 06/14/21 09:43 06/14/21 09:43 Period Temp Pulse Resp BP Sys/Irwin Pulse Ox Last 24 Hr 97.7 F-99.1 F 67-89 16 105-133/59-83 90-100 Intake and Output 06/13/21 06/14/21 06/14/21 21:59 05:59 13:59 Intake Total 1400 250 240 Output Total 1650 150 Balance -250 100 240 Weight 77.111 kg Intake & Output: Intake & Output 06/13/21 06/14/21 06/14/21 21:59 05:59 13:59 Intake Total 1400 250 240 Output Total 1650 150 Balance -250 100 240 Weight 77.111 kg Intake: Oral 1400 250 240 Output: Void Amount 1650 150 Other: Meal Dinner Breakfast Percent of Meal Consumed 75% 100% Feeding Ability Independent Independent Urine Appearance Clear Clear Urine Color Bright Yellow Bright Yellow Urine Odor Normal OBJ DATA Labs CBC & Chem 7: 06/14/21 05:31 06/14/21 05:31 Labs: Abnormal Lab Results 06/14/21 06/14/21 06/13/21 05:31 05:31 05:52 RBC 3.56 L MCV 101.4 H RDW 15.9 H Plt Count 121 L MPV 11.5 H Lymph # (Auto) 1.35 L D-Dimer ABG Methemoglobin 0.2 L VBG pO2 74.5 H VBG O2 Saturation 91.0 H Carboxyhemoglobin 4.0 H Carbon Dioxide 31 H POC BUN BUN 25 H POC Creatinine Calcium NT-Pro-B Natriuret Pep Albumin 2.9 L 06/13/21 06/13/21 06/12/21 05:51 05:51 12:03 RBC 3.42 L MCV 102.3 H RDW 16.3 H Plt Count 124 L MPV 11.1 H Lymph # (Auto) 1.31 L D-Dimer 3.56 H ABG Methemoglobin VBG pO2 VBG O2 Saturation Carboxyhemoglobin Carbon Dioxide POC BUN BUN 33 H POC Creatinine Calcium 8.4 L NT-Pro-B Natriuret Pep Albumin 2.7 L 06/12/21 06/12/21 06/12/21 12:03 12:02 12:00 RBC MCV 102.4 H RDW 16.2 H Plt Count 131 L MPV 11.0 H Lymph # (Auto) 1.26 L D-Dimer ABG Methemoglobin VBG pO2 VBG O2 Saturation Carboxyhemoglobin Carbon Dioxide POC BUN 41 H BUN POC Creatinine 1.7 H Calcium NT-Pro-B Natriuret Pep 5093.0 H Albumin Meds: Medications Acetaminophen (Acetaminophen 325 Mg Tablet) 650 mg PO Q6HP PRN; Protocol PRN Reason: Per Pain Protocol/Fever > 101 Last Admin: 06/13/21 19:17 Dose: 650 mg Documented by: Hydrocodone Bitart/Acetaminophen (Hydrocodone/Apap 5/325mg Tablet) 1 tab PO Q4HP PRN; Protocol PRN Reason: Per Pain Protocol Last Admin: 06/14/21 10:52 Dose: 1 tab Documented by: Albuterol Sulfate (Albuterol Sulfate 2.5 Mg/3 Ml Nebulizer) 2.5 mg NEB Q4HRT PRN PRN Reason: wheezing Aspirin (Aspirin 81 Mg Tab.Chew) 81 mg PO HS [facility] Last Admin: 06/13/21 20:17 Dose: 81 mg Documented by: Atorvastatin Calcium (Atorvastatin 40 Mg Tablet) 80 mg PO HS [facility] Last Admin: 06/13/21 20:17 Dose: 80 mg Documented by: Dextrose (Dextrose 50% 50 Ml Vial) 0 ml IV UD PRN PRN Reason: Per Sliding Scale Diagnostic Test (Pha) (Accu-Chek 1 Each Strip) 1 each FS ACHS [facility] Last Admin: 06/14/21 07:52 Dose: 1 each Documented by: Docusate Sodium (Docusate Sodium 100 Mg Capsule) 100 mg PO BID [facility] Last Admin: 06/13/21 20:16 Dose: 100 mg Documented by: Enoxaparin Sodium (Enoxaparin 40 Mg/0.4 Ml Syringe) 40 mg SQ DAILY [facility] Furosemide (Furosemide 40 Mg/4 Ml Vial) 40 mg IV TID [facility] Gabapentin (Gabapentin 400 Mg Capsule) 400 mg PO HS [facility] Last Admin: 06/13/21 20:17 Dose: 400 mg Documented by: Glucose (Dextrose 31 Gm Oral.Susp) 15 gm PO PRN PRN PRN Reason: Hypoglycemia Insulin Human Lispro (Insulin Lispro 1 Unit/0.01 Ml Unit) 0 unit SQ A[facility]S [facility]; Protocol Last Admin: 06/14/21 07:53 Dose: Not Given Documented by: Lactulose (Lactulose 20 Gm/30 Ml Oral.Charis) 10 gm PO DAILYP PRN PRN Reason: Constipation Methocarbamol (Methocarbamol 750 Mg Tablet) 750 mg PO Q6HP PRN PRN Reason: Muscle Spasm Last Admin: 06/13/21 20:16 Dose: 750 mg Documented by: Ondansetron HCl (Ondansetron 4 Mg/2 Ml Vial) 4 mg IV Q4HP PRN; Protocol PRN Reason: Nausea And Vomiting Last Admin: 06/13/21 11:23 Dose: 4 mg Documented by: Senna (Sennosides 1 Tablet) 2 tab PO HSP PRN PRN Reason: Constipation Sodium Chloride (0.9 % Sodium Chloride 10 Ml Syringe) 10 ml IV Q8 [facility] Last Admin: 06/14/21 05:26 Dose: 10 ml Documented by: ABG Interpretation ABG results: 06/13/21 05:52 ABG Methemoglobin 0.2 L VBG pH 7.40 VBG pCO2 43.3 VBG pO2 74.5 H VBG HCO3 26.2 VBG Total CO2 27.5 VBG O2 Saturation 91.0 H VBG Base Excess 1 A/P Narrative A/P Narrative: Assessment: 61 year old female with a history of chronic kidney disease stage III, coronary artery disease status post stent, congestive heart failure on Lasix, type 2 diabetes mellitus, depression, untreated obstructive sleep apnea who presented to the emergency department for generalized weakness, multiple falls and feeling extremely tired. In the ED, the patient was found to have respiratory acidosis and bilateral lower extremity concerning for heart failure. CTA chest was negative for pulmonary embolism. TTE was positive for a moderate to severely dilated right ventricle with preserved left ventricular ejection fraction. #Acute on chronic congestive heart failure #Concern for cor pulmonale, dilated right ventricle #Resolved respiratory acidosis #Generalized weakness and fatigue #Chronic kidney disease stage III #Type 2 diabetes mellitus #Coronary artery disease, stable #Depression #Obstructive sleep apnea, untreated #Obesity BMI 32 Plan -Increase Lasix 40 mg IV from twice daily to 3 times daily. -Oxygen supplementation as needed. -Monitor volume status, urine output, renal function. -Correction Humalog SSI-low. -Home aspirin, atorvastatin, gabapentin. -Holding home candesartan, Metformin, Lopressor for now. -monitoring manager. -Low-sodium diet. -PT following. -CPAP at bedtime and with naps -DVT prophylaxis: Lovenox -CODE STATUS: Full -Disposition: Home when stable, referral for sleep study. Time Spent With Patient Time: Total time spent is greater than 50% in coordination of care (as documented) at patient's floor/unit and/or counseling patient: QUALITY VTE Deep Vein Thrombosis/Pulmonary Embolism Present on Admission: No
[2021-06-14] MEDS: DOCUSATE SODIUM 100 MG CAPSULE PO SCH ×2 (11:33→20:24)
[2021-06-14] MEDS: METHOCARBAMOL 750 MG TABLET PO PRN ×2 (14:19→20:24)
[2021-06-14] MEDS: ATORVASTATIN 40 MG TABLET PO SCH (20:24)
[2021-06-14] MEDS: ASPIRIN 81 MG TAB.CHEW PO SCH (20:24)
[2021-06-14] MEDS: traZODone HCL 50 MG TABLET PO PRN (20:24)
[2021-06-14] MEDS: GABAPENTIN 400 MG CAPSULE PO SCH (20:24)
[2021-06-15] MEDS: 0.9 % SODIUM CHLORIDE 10 ML SYRINGE IV SCH ×3 (04:26→20:59)
[2021-06-15] MEDS: INSULIN LISPRO 1 UNIT/0.01 ML UNIT SQ SCH ×4 (07:13→19:03)
[2021-06-15 07:14] LABS: Albumin 2.9 gm/dL (3.2-5.2); Blood Urea Nitrogen 24 mg/dL (8-23); Calcium 8.8 mg/dL (8.6-10.4); Carbon Dioxide 31 mmol/L (22-30); Chloride 96 mmol/L (96-108); Glomerular Filtration Rate 61; Glucose 101 mg/dL (70-105); Phosphorous 3.9 mg/dL (2.5-4.5)
[2021-06-15] MEDS: DOCUSATE SODIUM 100 MG CAPSULE PO SCH ×2 (08:27→20:59)
[2021-06-15] MEDS: ENOXAPARIN 40 MG/0.4 ML SYRINGE SQ SCH (08:27)
[2021-06-15] MEDS: FUROSEMIDE 40 MG/4 ML VIAL IV SCH ×2 (08:28→14:37)
[2021-06-15] MEDS: ONDANSETRON 4 MG/2 ML VIAL IV PRN ×2 (10:49→19:58)
[2021-06-15] MEDS ORDERED: POTASSIUM CHLORIDE 20 MEQ TABLET PO ONE (11:00)
--- NOTE | 2021-06-15 16:42 | Internal Med Progress Note ---
SUBJECTIVE Subjective Patient information: Note initiated : 06/15/21 at 4:40 pm Service Date, if different from initiated Date: [] Patient: Margarita Guzman a 61 y/o F admitted on 06/12/21 for slurred speech, frequent falls x 1 month.. Chief Complaint: [] Interval history: Ms. Guzman is a 61 year old female with a history of chronic kidney disease stage III, coronary artery disease status post stent, congestive heart failure on Lasix, type 2 diabetes mellitus, depression, untreated obstructive sleep apnea who presented to the emergency department for generalized weakness, multiple falls and feeling extremely tired. The patient is unable to provide a history in the emergency department as she was sleeping soundly. History was taken from the patient's family member who was at the patient's bedside. The patient's symptoms have been progressively worsening for about 4 weeks. In addition, the patient has been having bilateral lower extremity edema for about the same period of time. She has had multiple falls and suffered minor injurie s. In the emergency department, the patient had an oxygen requirement while she was sleeping. Vitals were otherwise unremarkable. CBC was negative for leukocytosis, no anemia, platelets were 131. Gdvbh-ik-kqfd creatinine was 1.7, BUN was 41. NT proBNP was elevated at 5093, troponin was normal. Venous blood gas showed a respiratory acidosis with a pH of 7.28, pCO2 of 56.EKG just showed normal sinus rhythm, negative for acute ischemic changes. Chest x-ray was read by radiology and interpreted as borderline congestive heart failure. Additionally the patient had a cervical spine CT, facial and head CT which did not show any fractures or acute changes.the cervical spine CT showed a 8 x 10 mm dural based mass adjacent to the posterior left C5 vertebral body impinging on the exiting left C7 nerve root likely a meningioma. Hospital medicine was consulted for admission. 06/13 Alert and oriented today, hypercapnia resolved, diuresing well. CTA chest was negative for PE. TTE report pending. 06/14 Continues on 3 L/min nasal cannula oxygen, feels well. Increase Lasix 40 mg IV twice daily to 3 times daily frequency for improved diuresis. TTE showed a LVEF of 61%, moderate to severely dilated right ventricle with normal right ventricular systolic function, estimated pulmonary artery pressure 35 to 40 mmHg There was a severely dilated right atrium. Added [place] for right rib pain f rom a recent fall, no rib fractures noted on CTA chest. [facility] 06/15 Discontinued lasix IV as the patient was light headed, will follow renal function tomorrow. The patient will likely need oxygen at home when discharged. Physical exam Head: Atraumatic, normal inspection. Eyes: normal appearance, no scleral icterus. Neck: full ROM Respiratory: nasal canula oxygen, no respiratory distress. Cardiovascular: normal rate and rhythm, S1, S2. GI/Abdominal: Obesely distended, soft, nontender, no guarding. Extremities: Bilateral lower extremity pitting edema Neurological: CN II-XII intact, intact motor, intact sensation. Psychiatric: normal mood. Skin: warm, normal color Constitutional Vitals: Vital Signs Temp Pulse Resp BP Pulse Ox 97.9 F 85 20 110/71 93 06/15/21 16:00 06/15/21 16:00 06/15/21 16:00 06/15/21 16:00 06/15/21 16:00 Period Temp Pulse Resp BP Sys/Irwin Pulse Ox Last 24 Hr 97.1 F-98.7 F 75-109 14-20 97-113/60-72 92-95 Intake and Output 06/15/21 06/15/21 06/15/21 05:59 13:59 21:59 Intake Total 480 240 Output Total 900 Balance -900 480 240 Weight 75.705 kg Intake & Output: Intake & Output 06/15/21 06/15/21 06/15/21 05:59 13:59 21:59 Intake Total 480 240 Output Total 900 Balance -900 480 240 Weight 75.705 kg Intake: Oral 480 240 Output: Void Amount 900 Other: Meal Lunch Lunch Percent of Meal Consumed 100% 75% Feeding Ability Independent Urine Appearance Clear Urine Color Pale OBJ DATA Labs CBC & Chem 7: 06/14/21 05:31 06/15/21 05:53 Labs: Abnormal Lab Results 06/15/21 06/14/21 06/14/21 05:53 05:31 05:31 RBC 3.56 L MCV 101.4 H RDW 15.9 H Plt Count 121 L MPV 11.5 H Lymph # (Auto) 1.35 L D-Dimer ABG Methemoglobin VBG pO2 VBG O2 Saturation Carboxyhemoglobin Carbon Dioxide 31 H 31 H BUN 24 H 25 H Calcium NT-Pro-B Natriuret Pep Albumin 2.9 L 2.9 L 06/13/21 06/13/21 06/13/21 05:52 05:51 05:51 RBC 3.42 L MCV 102.3 H RDW 16.3 H Plt Count 124 L MPV 11.1 H Lymph # (Auto) 1.31 L D-Dimer ABG Methemoglobin 0.2 L VBG pO2 74.5 H VBG O2 Saturation 91.0 H Carboxyhemoglobin 4.0 H Carbon Dioxide BUN 33 H Calcium 8.4 L NT-Pro-B Natriuret Pep Albumin 2.7 L 06/12/21 06/12/21 12:03 12:00 RBC MCV RDW Plt Count MPV Lymph # (Auto) D-Dimer 3.56 H ABG Methemoglobin VBG pO2 VBG O2 Saturation Carboxyhemoglobin Carbon Dioxide BUN Calcium NT-Pro-B Natriuret Pep 5093.0 H Albumin Meds: Medications Acetaminophen (Acetaminophen 325 Mg Tablet) 650 mg PO Q6HP PRN; Protocol PRN Reason: Per Pain Protocol/Fever > 101 Last Admin: 06/13/21 19:17 Dose: 650 mg Documented by: Hydrocodone Bitart/Acetaminophen (Hydrocodone/Apap 5/325mg Tablet) 1 tab PO Q4HP PRN; Protocol PRN Reason: Per Pain Protocol Last Admin: 06/14/21 20:24 Dose: 1 tab Documented by: Albuterol Sulfate (Albuterol Sulfate 2.5 Mg/3 Ml Nebulizer) 2.5 mg NEB Q4HRT PRN PRN Reason: wheezing Aspirin (Aspirin 81 Mg Tab.Chew) 81 mg PO [facility] Last Admin: 06/14/21 20:24 Dose: 81 mg Documented by: Atorvastatin Calcium (Atorvastatin 40 Mg Tablet) 80 mg PO [facility] Last Admin: 06/14/21 20:24 Dose: 80 mg Documented by: Dextrose (Dextrose 50% 50 Ml Vial) 0 ml IV UD PRN PRN Reason: Per Sliding Scale Diagnostic Test (Pha) (Accu-Chek 1 Each Strip) 1 each FS ACHS [facility] Last Admin: 06/15/21 16:38 Dose: 1 each Documented by: Docusate Sodium (Docusate Sodium 100 Mg Capsule) 100 mg PO BID [facility] Last Admin: 03/11/22 08:27 Dose: 100 mg Documented by: Enoxaparin Sodium (Enoxaparin 40 Mg/0.4 Ml Syringe) 40 mg SQ DAILY [facility] Last Admin: 06/15/21 08:27 Dose: 40 mg Documented by: Gabapentin (Gabapentin 400 Mg Capsule) 400 mg PO HS [facility] Last Admin: 06/14/21 20:24 Dose: 400 mg Documented by: Glucose (Dextrose 31 Gm Oral.Susp) 15 gm PO PRN PRN PRN Reason: Hypoglycemia Insulin Human Lispro (Insulin Lispro 1 Unit/0.01 Ml Unit) 0 unit SQ ACHS [facility]; Protocol Last Admin: 06/15/21 16:39 Dose: Not Given Documented by: Lactulose (Lactulose 20 Gm/30 Ml Oral.Charis) 10 gm PO DAILYP PRN PRN Reason: Constipation Methocarbamol (Methocarbamol 750 Mg Tablet) 750 mg PO Q6HP PRN PRN Reason: Muscle Spasm Last Admin: 06/14/21 20:24 Dose: 750 mg Documented by: Ondansetron HCl (Ondansetron 4 Mg/2 Ml Vial) 4 mg IV Q4HP PRN; Protocol PRN Reason: Nausea And Vomiting Last Admin: 06/15/21 10:49 Dose: 4 mg Documented by: Senna (Sennosides 1 Tablet) 2 tab PO HSP PRN PRN Reason: Constipation Sodium Chloride (0.9 % Sodium Chloride 10 Ml Syringe) 10 ml IV Q8 [facility] Last Admin: 06/15/21 14:36 Dose: 10 ml Documented by: Trazodone HCl (Trazodone Hcl 50 Mg Tablet) 50 mg PO HSP PRN PRN Reason: Insomnia Last Admin: 06/14/21 20:24 Dose: 50 mg Documented by: ABG Interpretation ABG results: 06/13/21 05:52 ABG Methemoglobin 0.2 L VBG pH 7.40 VBG pCO2 43.3 VBG pO2 74.5 H VBG HCO3 26.2 VBG Total CO2 27.5 VBG O2 Saturation 91.0 H VBG Base Excess 1 A/P Narrative A/P Narrative: Assessment: 61 year old female with a history of chronic kidney disease stage III, coronary artery disease status post stent, congestive heart failure on Lasix, type 2 diabetes mellitus, depression, untreated obstructive sleep apnea who presented to the emergency department for generalized weakness, multiple falls and feeling extremely tired. In the ED, the patient was found to have respiratory acidosis and bilateral lower extremity concerning for heart failure. CTA chest was negative for pulmonary embolism. TTE was positive for a moderate to severely dilated right ventricle with preserved left ventricular ejection fraction. #Acute on chronic congestive heart failure #Concern for cor pulmonale, dilated right ventricle #Resolved respiratory acidosis #Generalized weakness and fatigue #Chronic kidney disease stage III #Type 2 diabetes mellitus #Coronary artery disease, stable #Depression #Obstructive sleep apnea, untreated #Obesity BMI 32 Plan -Discontinue IV lasix. -Oxygen supplementation as needed. -Monitor volume status, urine output, renal function. -Correction Humalog SSI-low. -Home aspirin, atorvastatin, gabapentin. -Holding home candesartan, Metformin, Lopressor for now. -monitoring coordinator. -Low-sodium diet. -PT following. -CPAP at bedtime and with naps -DVT prophylaxis: Lovenox -CODE STATUS: Full -Disposition: Home when stable, referral for sleep study. Time Spent With Patient Time: Total time spent is greater than 50% in coordination of care (as documented) at patient's floor/unit and/or counseling patient: QUALITY VTE Deep Vein Thrombosis/Pulmonary Embolism Present on Admission: No
[2021-06-15] MEDS: ASPIRIN 81 MG TAB.CHEW PO SCH (20:59)
[2021-06-15] MEDS: METHOCARBAMOL 750 MG TABLET PO PRN (20:59)
[2021-06-15] MEDS: GABAPENTIN 400 MG CAPSULE PO SCH (20:59)
[2021-06-15] MEDS: ATORVASTATIN 40 MG TABLET PO SCH (20:59)
[2021-06-15] MEDS: traZODone HCL 50 MG TABLET PO PRN (23:35)
[2021-06-16] MEDS: 0.9 % SODIUM CHLORIDE 10 ML SYRINGE IV SCH (04:26)
[2021-06-16 07:32] LABS: Blood Urea Nitrogen 20 mg/dL (8-23); Calcium 8.8 mg/dL (8.6-10.4); Carbon Dioxide 32 mmol/L (22-30); Chloride 95 mmol/L (96-108); Glomerular Filtration Rate 49; Glucose 113 mg/dL (70-105)
[2021-06-16] MEDS: INSULIN LISPRO 1 UNIT/0.01 ML UNIT SQ SCH ×2 (07:46→12:03)
[2021-06-16] MEDS: HYDROcodone/APAP 5/325MG TABLET PO PRN (08:27)
[2021-06-16] MEDS: ENOXAPARIN 40 MG/0.4 ML SYRINGE SQ SCH (08:27)
[2021-06-16] MEDS: DOCUSATE SODIUM 100 MG CAPSULE PO SCH (08:28)
[2021-06-16] MEDS ORDERED: TORSEMIDE 10 MG TABLET PO SCH (09:00)
--- NOTE | 2021-06-16 11:28 | Discharge Summary ---
Discharge Provider Provider Patient information: Note initiated : 06/16/21 at 11:24 am Service Date, if different from initiated Date: [] Patient: Margarita Guzman 61 y/o F admitted on 06/12/21 for slurred speech, frequent falls x 1 month.. Chief Complaint: [] Date of admission: 06/12/21 19:07 Discharge date: 06/16/21 Primary care physician: Piter Mohan DO Consults: 06/12/21 Consult to Physician [CONS] Stat Comment: Consulting Provider: Arun Caro Reason For Exam: Physician to Consult Discharge Meds Discharge Medications Home Medications aspirin 81 mg chewable tablet 81 mg PO QHS 07/12/17 [History Confirmed 06/12/21 Last Taken 06/11/21 20:00] cholecalciferol (vitamin D3) 50 mcg (2,000 unit) capsule 50 mcg PO QHS 11/17/20 [History Confirmed 06/12/21 Last Taken 06/11/21 20:00] zinc 50 mg tablet 50 mg PO QDAY 11/17/20 [History Confirmed 06/12/21 Last Taken 06/11/21 20:00] gabapentin 100 mg capsule 600 mg PO QHS #180 cap 05/11/21 [Rx Confirmed 06/12/21 Last Taken 06/11/21 20:00] lorazepam 1 mg tablet 1 mg PO QHS #30 tab 05/11/21 [Rx Confirmed 06/12/21 Last Taken 06/11/21 20:00] atorvastatin 80 mg tablet 80 mg PO QHS 06/12/21 [History Confirmed 06/12/21 Last Taken 06/11/21 20:00] candesartan 4 mg tablet 4 mg PO QHS 06/12/21 [History Confirmed 06/12/21 Last Taken 06/11/21 20:00] metformin 500 mg tablet 500 mg PO QHS 06/12/21 [History Confirmed 06/12/21 Last Taken 06/11/21 20:00] metoprolol tartrate 25 mg tablet 50 mg PO QHS 06/12/21 [History Confirmed 06/12/21 Last Taken 06/11/21 20:00] torsemide 20 mg tablet 20 mg PO QDAY #60 tab 06/16/21 [Rx Last Taken Unknown] COURSE Hospital Course Hospital course: Ms. Guzman is a 61 year old female with a history of chronic kidney disease stage III, coronary artery disease status post stent, congestive heart failure on Lasix, type 2 diabetes mellitus, depression, untreated obstructive sleep apnea who presented to the emergency department for generalized weakness, multiple falls and feeling extremely tired. The patient is unable to provide a history in the emergency department as she was sleeping soundly. History was taken from the patient's family member who was at the patient's bedside. The patient's symptoms have been progressively worsening for about 4 weeks. In addition, the patient has been having bilateral lower extremity edema for about the same period of time. She has had multiple falls and suffered minor injuries. In the emergency department, the patient had an oxygen requirement while she was sleeping. Vitals were otherwise unremarkable. CBC was negative for leukocytosis, no anemia, platelets were 131. [id number] creatinine was 1.7, BUN was 41. NT proBNP was elevated at 5093, troponin was normal. Venous blood gas showed a respiratory acidosis with a pH of 7.28, pCO2 of 56.EKG just showed normal sinus rhythm, negative for acute ischemic changes. Chest x-ray was read by radiology and interpreted as borderline congestive heart failure. Additionally the patient had a cervical spine CT, facial and head CT which did not show any fractures or acute changes.the cervical spine CT showed a 8 x 10 mm dural based mass adjacent to the posterior left C5 vertebral body impinging on the exiting left C7 nerve root likely a meningioma. Hospital medicine was consulted for admission. 06/13 Alert and oriented today, hypercapnia resolved, diuresing well. CTA chest was negative for PE. TTE report pending. 06/14 Continues on 3 L/min nasal cannula oxygen, feels well. Increase Lasix 40 mg IV twice daily to 3 times daily frequency for improved diuresis. TTE showed a LVEF of 61%, moderate to severely dilated right ventricle with normal right ventricular systolic function, estimated pulmonary artery pressure 35 to 40 mm Hg There was a severely dilated right atrium. Added [place] for right rib pain from a recent fall, no rib fractures noted on CTA chest. Transfer to [facility]. 06/15 Discontinued lasix IV as the patient was light headed, will follow renal function tomorrow. The patient will likely need oxygen at home when discharged. 06/16 Feels much better today. Home oxygen evaluation completed, the patient will need 2 L/min supplemental oxygen for congestive heart failure. The patient's was able to purchase a CPAP machine for home use. Discahrged to home on torsemide 20 mg daily. Instructed the patient to monitor her weights, she can double the dose if she begins to retain fluid. Follow up with PCP, recommend obtaining chemistry panel to follow renal function and electrolytes. Referral placed for cardiology. Physical exam Head: Atraumatic, normal inspection. Eyes: normal appearance, no scleral icterus. Neck: full ROM Respiratory: nasal canula oxygen, no respiratory distress. Cardiovascular: normal rate and rhythm, S1, S2. GI/Abdominal: Obesely distended, soft, nontender, no guarding. Extremities: Bilateral lower extremity pitting edema much improved compared to admission. Neurological: CN II-XII intact, intact motor, intact sensation. Psychiatric: normal mood. Skin: warm, normal color Discharge diagnosis: Acute on chronic diastolic heart failure Secondary discharge diagnosis: Right ventricular failure Time Spent with Patient Time attestation: Total time spent providing and/or coordinating discharge services: EXAM Constitutional Vitals: Temp Pulse Resp BP Pulse Ox 98.2 F 81 16 126/70 94 06/16/21 07:21 06/16/21 07:21 06/16/21 07:21 06/16/21 07:21 06/16/21 07:21 Discharge Data Data Completed and Pending Labs on day of discharge: Labs from last 24 hours 06/16/21 05:39 Sodium 138 Potassium 4.3 Chloride 95 L Carbon Dioxide 32 H Anion Gap 11.0 BUN 20 Creatinine 1.2 H GFR Calculation 49 Glucose 113 H Calcium 8.8 Phosphorus 3.0 Albumin 3.0 L Discharge Plan Patient/Caregiver Discharge Instructions Activity: increase activity as tolerated Diet: Low Sodium (2gm), Cardiac and Consistent Carbohydrate Prescriptions: New torsemide 20 mg tablet 20 mg PO QDAY Qty: 60 3RF Continued lorazepam 1 mg tablet 1 mg PO QHS Qty: 30 2RF gabapentin 100 mg capsule 600 mg PO QHS Qty: 180 1RF Rx Instructions: Take 1-6 capsules by mouth once daily at bedtime for nerve pain aspirin 81 mg tablet,chewable 81 mg PO QHS 0RF zinc 50 mg tablet 50 mg PO QDAY 0RF cholecalciferol (vitamin D3) 50 mcg (2,000 unit) capsule 50 mcg PO QHS 0RF metformin 500 mg tablet 500 mg PO QHS 0RF atorvastatin 80 mg tablet 80 mg PO QHS 0RF candesartan 4 mg tablet 4 mg PO QHS 0RF metoprolol tartrate 25 mg tablet 50 mg PO QHS 0RF Discontinued furosemide [Lasix] 20 mg tablet 10 mg PO QAM 0RF Follow Up Plan Follow up with: Robby Correa MD [Physician] - Piter Mohan DO [Primary Care Provider] - Patient Disposition: Home, Self-Care Prognosis: Fair Overall status at discharge: patient is progressing back to baseline Discharge Orders: Discharge Order (Routine); Ordered 06/16/21 Ordered By: Arun POTTER VTE Deep Vein Thrombosis/Pulmonary Embolism Present on Admission: No
--- NOTE | 2021-06-17 09:17 | EKG ---
[facility] Test Date: 2021-06-12 Pat Name: Margarita Guzman Department: ED Room: Gender: Female Immigration Officer: TRAE : 1960 Requested By: Tao Almeida Order Number: [id number] Reading MD: Robby Correa Measurements Intervals [place] Rate: 69 P: 66 OR: 207 QRS: 130 QRSD: 103 T: 1 QT: 404 QTc: 433 Interpretive Statements Sinus rhythm Probable left atrial enlargement Right axis deviation Low voltage, precordial leads Abnormal R-wave progression, late transition Nonspecific T abnrm, anterolateral leads Electronically Signed On 06-17-2021 9:17:06 PDT by Robby Correa /[id number]
== END 2021-06-16 13:15 | disposition home or self-care (01) | DRG 291 ==
LOC: ED 10:42 → ICU 19:07 → MEDSUR 06-14 14:30
PROVIDERS: ADMIT Internal Medicine; ATTEND Internal Medicine

== ENCOUNTER 2024-01-19 12:14 | Inpatient (IN) ==
[2024-01-19 14:16] LABS: Basophils # (Auto) 0.05 K/mcL (0.00-0.30); Basophils % (Auto) 0.9 % (0.0-2.0); Eosinophils # (Auto) 0.17 K/mcL (0.00-0.70); Eosinophils % (Auto) 2.9 % (0.0-7.0); Hematocrit 30.1 % (34.1-44.9); Hemoglobin 10.2 g/dL (11.2-15.7); Lymphocytes # (Auto) 1.12 K/mcL (1.50-4.80); Lymphocytes % (Auto) 19.2 % (15.5-49.0); Mean Cell Volume 95.6 fL (80.0-100.0); Mean Corpuscular HGB Conc 33.9 g/dL (31.0-36.0); Mean Platelet Volume 10.9 fL (8.8-12.5); Monocytes % (Auto) 13.7 % (1.0-12.0); Neutrophils % (Auto) 61.8 % (38.0-78.0); Platelet Count 125 K/mcL (140-440); RBC 3.15 M/mcL (3.59-5.38); Red Cell Distribution Width 12.6 % (11.5-14.5); WBC 5.8 K/mcL (4.5-11.0)
[2024-01-19 14:24] LABS: Appearance,Urine Clear (Clear); Bacteria,Urine Mod /hpf (0); Bilirubin,Urine Negative (Negative); Color,Urine Amber; Glucose,Urine (UA) Negative (Negative); Ketones,Urine Negative (Negative); Leukocyte Esterase,Urine Negative /uL (Negative); Nitrate,Urine Positive (Negative); Protein,Urine Negative (Negative); Urine Blood Negative ery/mcL (Negative); Urine RBC 0 /hpf (0-3); Urine Squamous Epithelial Cell 4 /hpf (0-4); Urine WBC 1 /hpf (0-4); Urobilinogen,Urine Normal
[2024-01-19 14:36] LABS: ALT/SGPT 17 U/L (<40); AST/SGOT 25 U/L (<32); Albumin 3.7 gm/dL (3.2-5.2); Albumin/Globulin Ratio 1.4 (1.0-2.3); Alkaline Phosphatase 106 U/L (39-117); Bilirubin,Total 0.5 mg/dL (0.1-1.0); Blood Urea Nitrogen 44 mg/dL (8-23); Calcium 9.9 mg/dL (8.6-10.4); Carbon Dioxide 29 mmol/L (22-30); Chloride 84 mmol/L (96-108); Globulin 2.6 gm/dL (2.2-3.7); Glomerular Filtration Rate 10; Glucose 111 mg/dL (70-105); Potassium 5.3 mmol/L (3.3-5.1); Sodium 124 mmol/L (133-145)
[2024-01-19] MEDS: cefTRIAXone 1 GM VIAL IV ONE (14:53)
[2024-01-19] MEDS: 0.9 % SODIUM CHLORIDE 1,000 ML IV ONE (15:49)
[2024-01-19 18:04] LABS: Urea Nitrogen, Urine 219 mg/dL
[2024-01-19] MEDS ORDERED: ONDANSETRON 4 MG/2 ML VIAL IV PRN (19:33)
[2024-01-19] MEDS ORDERED: POTASSIUM CHLORIDE 40 MEQ in DEXTROSE 5% IN WATER 500 ML IV PRN (19:33)
[2024-01-19] MEDS ORDERED: DEXTROSE 31 GM ORAL.SUSP PO PRN (19:33)
[2024-01-19] MEDS ORDERED: DEXTROSE 50% 50 ML VIAL IV PRN (19:33)
[2024-01-19] MEDS ORDERED: POTASSIUM CHLORIDE 20 MEQ TABLET PO PRN ×2 (19:33)
[2024-01-19] MEDS ORDERED: POLYETHYLENE GLYCOL 3350 17 GM PACKET PO PRN (19:33)
[2024-01-19] MEDS ORDERED: METOCLOPRAMIDE 10 MG/2 ML VIAL IV PRN (19:33)
[2024-01-19] MEDS ORDERED: SENNOSIDES 1 TABLET PO PRN (19:33)
[2024-01-19] MEDS ORDERED: IPRATROPIUM/ALBUTEROL 3 ML AMPUL.NEB NEB PRN (19:33)
[2024-01-19] MEDS: 0.9 % SODIUM CHLORIDE 1,000 ML IV SCH (19:47)
[2024-01-19] MEDS: ATORVASTATIN 40 MG TABLET PO SCH (21:07)
[2024-01-19] MEDS: INSULIN LISPRO 1 UNIT/0.01 ML UNIT SQ SCH (21:07)
[2024-01-19] MEDS: GABAPENTIN 300 MG CAPSULE PO SCH (21:07)
[2024-01-19] MEDS: ASPIRIN 81 MG TAB.CHEW PO SCH (21:08)
[2024-01-19] MEDS: traZODone HCL 50 MG TABLET PO SCH (21:08)
[2024-01-19] MEDS: HEPARIN 5,000 UNIT/ML VIAL SQ SCH (21:09)
[2024-01-20 06:12] LABS: ALT/SGPT 11 U/L (<40); AST/SGOT 19 U/L (<32); Albumin 2.9 gm/dL (3.2-5.2); Albumin/Globulin Ratio 1.5 (1.0-2.3); Alkaline Phosphatase 79 U/L (39-117); Bilirubin,Direct < 0.2 mg/dL (0-0.3); Bilirubin,Total 0.3 mg/dL (0.1-1.0); Blood Urea Nitrogen 40 mg/dL (8-23); Calcium 8.5 mg/dL (8.6-10.4); Carbon Dioxide 27 mmol/L (22-30); Chloride 89 mmol/L (96-108); Glomerular Filtration Rate 11; Glucose 98 mg/dL (70-105); Lactate Dehydrogenase 306 U/L (135-225); Phosphorous 2.9 mg/dL (2.5-4.5); Potassium 4.7 mmol/L (3.3-5.1); Sodium 125 mmol/L (133-145); Triglycerides 89 mg/dL (<150); Uric Acid 8.3 mg/dL (2.5-8.0)
[2024-01-20 07:07] LABS: Basophils # (Auto) 0.05 K/mcL (0.00-0.30); Basophils % (Auto) 1.2 % (0.0-2.0); Eosinophils # (Auto) 0.19 K/mcL (0.00-0.70); Eosinophils % (Auto) 4.6 % (0.0-7.0); Hematocrit 24.1 % (34.1-44.9); Hemoglobin 8.1 g/dL (11.2-15.7); Lymphocytes # (Auto) 1.12 K/mcL (1.50-4.80); Lymphocytes % (Auto) 27.1 % (15.5-49.0); Mean Cell Volume 97.6 fL (80.0-100.0); Mean Corpuscular HGB Conc 33.6 g/dL (31.0-36.0); Mean Platelet Volume 10.9 fL (8.8-12.5); Monocytes # (Auto) 0.76 K/mcL (0.10-0.90); Monocytes % (Auto) 18.4 % (1.0-12.0); Neutrophils % (Auto) 47.5 % (38.0-78.0); Platelet Count 92 K/mcL (140-440); RBC 2.47 M/mcL (3.59-5.38); Red Cell Distribution Width 12.9 % (11.5-14.5); WBC 4.1 K/mcL (4.5-11.0)
[2024-01-20] MEDS: MAGNESIUM SULFATE 2 GM/50 ML BAG IV PRN (07:25)
[2024-01-20] MEDS ORDERED: BUDESONIDE 1 PUFF INHALER INH SCH (09:00)
[2024-01-20 09:01] LABS: Estimated Average Glucose(eAG) 148 mg/dL; Hemoglobin A1C 6.8 % Hgb (4.0-6.0)
[2024-01-20] MEDS: ALLOPURINOL 100 MG TABLET PO SCH (09:21)
[2024-01-20] MEDS: cefTRIAXone 1 GM VIAL IV SCH (09:21)
[2024-01-20] MEDS: SODIUM CHLORIDE 1 GM TABLET PO SCH (09:21)
[2024-01-20] MEDS: [UNRECOGNIZED DRUG - OTHER] INH SCH (10:11)
[2024-01-20] MEDS: BUDESONIDE INH SCH (10:11)
[2024-01-21 06:36] LABS: ALT/SGPT 10 U/L (<40); AST/SGOT 19 U/L (<32); Albumin 2.6 gm/dL (3.2-5.2); Albumin/Globulin Ratio 1.2 (1.0-2.3); Alkaline Phosphatase 76 U/L (39-117); Bilirubin,Direct < 0.2 mg/dL (0-0.3); Bilirubin,Total 0.2 mg/dL (0.1-1.0); Blood Urea Nitrogen 38 mg/dL (8-23); Calcium 8.3 mg/dL (8.6-10.4); Carbon Dioxide 24 mmol/L (22-30); Chloride 90 mmol/L (96-108); Globulin 2.1 gm/dL (2.2-3.7); Glomerular Filtration Rate 13; Glucose 100 mg/dL (70-105); Lactate Dehydrogenase 279 U/L (135-225); Phosphorous 3.4 mg/dL (2.5-4.5); Potassium 4.7 mmol/L (3.3-5.1); Sodium 125 mmol/L (133-145); Triglycerides 99 mg/dL (<150); Uric Acid 7.2 mg/dL (2.5-8.0)
[2024-01-21 06:54] LABS: Basophils # (Auto) 0.03 K/mcL (0.00-0.30); Basophils % (Auto) 0.8 % (0.0-2.0); Eosinophils # (Auto) 0.15 K/mcL (0.00-0.70); Eosinophils % (Auto) 3.9 % (0.0-7.0); Hematocrit 22.1 % (34.1-44.9); Hemoglobin 7.6 g/dL (11.2-15.7); Lymphocytes # (Auto) 0.93 K/mcL (1.50-4.80); Mean Cell Volume 94.4 fL (80.0-100.0); Mean Corpuscular HGB Conc 34.4 g/dL (31.0-36.0); Monocytes # (Auto) 0.67 K/mcL (0.10-0.90); Monocytes % (Auto) 17.3 % (1.0-12.0); Platelet Count 94 K/mcL (140-440); RBC 2.34 M/mcL (3.59-5.38); Red Cell Distribution Width 12.9 % (11.5-14.5); WBC 3.9 K/mcL (4.5-11.0)
[2024-01-21] MEDS: SODIUM CHLORIDE 1 GM TABLET PO SCH (08:51)
[2024-01-21] MEDS: 0.9 % SODIUM CHLORIDE 500 ML IV ONE (08:54)
[2024-01-21] MEDS: FLU VACC TS2024-25(6MOS UP)/PF 45 MCG/0.5 ML SYRINGE IM ONE (11:54)
[2024-01-21] MEDS: ACETAMINOPHEN 325 MG TABLET PO PRN (19:11)
[2024-01-22 05:54] LABS: Basophils # (Auto) 0.02 K/mcL (0.00-0.30); Basophils % (Auto) 0.5 % (0.0-2.0); Eosinophils # (Auto) 0.15 K/mcL (0.00-0.70); Hematocrit 22.5 % (34.1-44.9); Hemoglobin 7.4 g/dL (11.2-15.7); Lymphocytes # (Auto) 0.86 K/mcL (1.50-4.80); Lymphocytes % (Auto) 23.1 % (15.5-49.0); Mean Cell Volume 99.6 fL (80.0-100.0); Mean Corpuscular HGB Conc 32.9 g/dL (31.0-36.0); Mean Platelet Volume 10.9 fL (8.8-12.5); Monocytes # (Auto) 0.64 K/mcL (0.10-0.90); Monocytes % (Auto) 17.2 % (1.0-12.0); Neutrophils % (Auto) 54.4 % (38.0-78.0); Platelet Count 93 K/mcL (140-440); RBC 2.26 M/mcL (3.59-5.38); Red Cell Distribution Width 13.2 % (11.5-14.5); WBC 3.7 K/mcL (4.5-11.0)
[2024-01-22 06:24] LABS: ALT/SGPT 9 U/L (<40); AST/SGOT 18 U/L (<32); Albumin 2.6 gm/dL (3.2-5.2); Albumin/Globulin Ratio 1.2 (1.0-2.3); Alkaline Phosphatase 80 U/L (39-117); Bilirubin,Direct < 0.2 mg/dL (0-0.3); Bilirubin,Total < 0.2 mg/dL (0.1-1.0); Blood Urea Nitrogen 38 mg/dL (8-23); Calcium 8.2 mg/dL (8.6-10.4); Carbon Dioxide 24 mmol/L (22-30); Chloride 92 mmol/L (96-108); Globulin 2.2 gm/dL (2.2-3.7); Glomerular Filtration Rate 14; Glucose 105 mg/dL (70-105); Lactate Dehydrogenase 270 U/L (135-225); Phosphorous 3.5 mg/dL (2.5-4.5); Potassium 5.2 mmol/L (3.3-5.1); Sodium 125 mmol/L (133-145); Triglycerides 97 mg/dL (<150); Uric Acid 6.3 mg/dL (2.5-8.0)
[2024-01-22] MEDS: FUROSEMIDE 20 MG/2 ML VIAL IV ONE (11:48)
[2024-01-22] MEDS: VANCOMYCIN 125 MG CAPSULE PO SCH (22:06)
[2024-01-23 06:25] LABS: Basophils # (Auto) 0.04 K/mcL (0.00-0.30); Basophils % (Auto) 0.9 % (0.0-2.0); Eosinophils # (Auto) 0.21 K/mcL (0.00-0.70); Eosinophils % (Auto) 4.6 % (0.0-7.0); Hematocrit 24.6 % (34.1-44.9); Hemoglobin 8.1 g/dL (11.2-15.7); Lymphocytes # (Auto) 0.95 K/mcL (1.50-4.80); Lymphocytes % (Auto) 20.7 % (15.5-49.0); Mean Cell Volume 98.4 fL (80.0-100.0); Mean Corpuscular HGB Conc 32.9 g/dL (31.0-36.0); Mean Platelet Volume 10.9 fL (8.8-12.5); Monocytes # (Auto) 0.71 K/mcL (0.10-0.90); Monocytes % (Auto) 15.4 % (1.0-12.0); Neutrophils % (Auto) 57.3 % (38.0-78.0); Platelet Count 108 K/mcL (140-440); Red Cell Distribution Width 13.6 % (11.5-14.5); WBC 4.6 K/mcL (4.5-11.0)
[2024-01-23 06:45] LABS: ALT/SGPT 10 U/L (<40); AST/SGOT 19 U/L (<32); Albumin 2.9 gm/dL (3.2-5.2); Albumin/Globulin Ratio 1.2 (1.0-2.3); Alkaline Phosphatase 87 U/L (39-117); Bilirubin,Direct < 0.2 mg/dL (0-0.3); Bilirubin,Total 0.2 mg/dL (0.1-1.0); Blood Urea Nitrogen 38 mg/dL (8-23); Calcium 8.4 mg/dL (8.6-10.4); Carbon Dioxide 23 mmol/L (22-30); Chloride 90 mmol/L (96-108); Globulin 2.4 gm/dL (2.2-3.7); Glomerular Filtration Rate 16; Glucose 101 mg/dL (70-105); Lactate Dehydrogenase 284 U/L (135-225); Phosphorous 4.2 mg/dL (2.5-4.5); Potassium 5.1 mmol/L (3.3-5.1); Sodium 126 mmol/L (133-145); Triglycerides 102 mg/dL (<150); Uric Acid 5.7 mg/dL (2.5-8.0)
[2024-01-23] MEDS: FUROSEMIDE 20 MG/2 ML VIAL IV ONE ×2 (07:30→12:59)
[2024-01-23 19:30] LABS: Blood Urea Nitrogen 39 mg/dL (8-23); Calcium 8.7 mg/dL (8.6-10.4); Carbon Dioxide 26 mmol/L (22-30); Chloride 88 mmol/L (96-108); Glomerular Filtration Rate 17; Glucose 115 mg/dL (70-105); Potassium 4.6 mmol/L (3.3-5.1); Sodium 128 mmol/L (133-145)
[2024-01-24 06:31] LABS: Basophils # (Auto) 0.05 K/mcL (0.00-0.30); Basophils % (Auto) 1.1 % (0.0-2.0); Eosinophils # (Auto) 0.18 K/mcL (0.00-0.70); Eosinophils % (Auto) 4.1 % (0.0-7.0); Hemoglobin 7.6 g/dL (11.2-15.7); Lymphocytes % (Auto) 20.3 % (15.5-49.0); Mean Platelet Volume 10.9 fL (8.8-12.5); Monocytes # (Auto) 0.66 K/mcL (0.10-0.90); Monocytes % (Auto) 14.9 % (1.0-12.0); Neutrophils % (Auto) 57.8 % (38.0-78.0); Platelet Count 117 K/mcL (140-440); Red Cell Distribution Width 13.6 % (11.5-14.5); WBC 4.4 K/mcL (4.5-11.0)
[2024-01-24 06:41] LABS: Blood Urea Nitrogen 39 mg/dL (8-23); Carbon Dioxide 23 mmol/L (22-30); Chloride 89 mmol/L (96-108); Glomerular Filtration Rate 17; Glucose 96 mg/dL (70-105); Potassium 4.8 mmol/L (3.3-5.1); Sodium 124 mmol/L (133-145)
[2024-01-24 08:40] LABS: Blood Urea Nitrogen 38 mg/dL (8-23); Calcium 8.5 mg/dL (8.6-10.4); Carbon Dioxide 24 mmol/L (22-30); Chloride 87 mmol/L (96-108); Glomerular Filtration Rate 18; Glucose 107 mg/dL (70-105); Potassium 4.6 mmol/L (3.3-5.1); Sodium 123 mmol/L (133-145)
[2024-01-24] MEDS: CEFUROXIME 500 MG TABLET PO SCH (10:07)
[2024-01-24] MEDS: 0.9 % SODIUM CHLORIDE 1,000 ML IV SCH (15:00)
[2024-01-24] MEDS: FUROSEMIDE 20 MG/2 ML VIAL IV SCH (15:00)
[2024-01-24 18:30] LABS: Blood Urea Nitrogen 37 mg/dL (8-23); Calcium 8.4 mg/dL (8.6-10.4); Carbon Dioxide 21 mmol/L (22-30); Chloride 86 mmol/L (96-108); Glomerular Filtration Rate 20; Glucose 113 mg/dL (70-105); Potassium 4.4 mmol/L (3.3-5.1); Sodium 123 mmol/L (133-145)
[2024-01-25 06:29] LABS: Basophils # (Auto) 0.05 K/mcL (0.00-0.30); Eosinophils # (Auto) 0.25 K/mcL (0.00-0.70); Eosinophils % (Auto) 5.2 % (0.0-7.0); Hematocrit 23.9 % (34.1-44.9); Hemoglobin 7.6 g/dL (11.2-15.7); Lymphocytes # (Auto) 0.98 K/mcL (1.50-4.80); Lymphocytes % (Auto) 20.5 % (15.5-49.0); Mean Corpuscular HGB Conc 31.8 g/dL (31.0-36.0); Mean Platelet Volume 10.9 fL (8.8-12.5); Monocytes # (Auto) 0.76 K/mcL (0.10-0.90); Monocytes % (Auto) 15.9 % (1.0-12.0); Neutrophils % (Auto) 55.9 % (38.0-78.0); Platelet Count 123 K/mcL (140-440); RBC 2.32 M/mcL (3.59-5.38); Red Cell Distribution Width 14.1 % (11.5-14.5); WBC 4.8 K/mcL (4.5-11.0)
[2024-01-25 06:38] LABS: Blood Urea Nitrogen 37 mg/dL (8-23); Calcium 7.6 mg/dL (8.6-10.4); Carbon Dioxide 24 mmol/L (22-30); Chloride 92 mmol/L (96-108); Glomerular Filtration Rate 20; Glucose 100 mg/dL (70-105); Potassium 4.5 mmol/L (3.3-5.1); Sodium 128 mmol/L (133-145)
[2024-01-25] MEDS: 0.9 % SODIUM CHLORIDE 1,000 ML IV SCH (11:32)
[2024-01-25] MEDS: FUROSEMIDE 20 MG/2 ML VIAL IV SCH (16:05)
[2024-01-26 06:57] LABS: Basophils # (Auto) 0.04 K/mcL (0.00-0.30); Eosinophils # (Auto) 0.16 K/mcL (0.00-0.70); Eosinophils % (Auto) 3.9 % (0.0-7.0); Hematocrit 21.5 % (34.1-44.9); Hemoglobin 7.5 g/dL (11.2-15.7); Lymphocytes # (Auto) 0.88 K/mcL (1.50-4.80); Lymphocytes % (Auto) 21.5 % (15.5-49.0); Mean Cell Volume 94.3 fL (80.0-100.0); Mean Corpuscular HGB Conc 34.9 g/dL (31.0-36.0); Mean Platelet Volume 11.1 fL (8.8-12.5); Monocytes # (Auto) 0.61 K/mcL (0.10-0.90); Monocytes % (Auto) 14.9 % (1.0-12.0); Neutrophils % (Auto) 57.7 % (38.0-78.0); Platelet Count 137 K/mcL (140-440); RBC 2.28 M/mcL (3.59-5.38); WBC 4.1 K/mcL (4.5-11.0)
[2024-01-26 07:22] LABS: Blood Urea Nitrogen 38 mg/dL (8-23); Calcium 7.5 mg/dL (8.6-10.4); Carbon Dioxide 23 mmol/L (22-30); Chloride 95 mmol/L (96-108); Glomerular Filtration Rate 23; Glucose 103 mg/dL (70-105); Potassium 4.3 mmol/L (3.3-5.1); Sodium 130 mmol/L (133-145)
[2024-01-26] MEDS: 0.9 % SODIUM CHLORIDE 1,000 ML IV SCH (08:15)
[2024-01-26] MEDS: MAGNESIUM SULFATE 1 GM/100 ML BAG IV ONE (09:16)
[2024-01-26] MEDS: METOPROLOL SUCCINATE 25 MG TAB.XL.24H PO SCH (12:33)
[2024-01-26] MEDS: FUROSEMIDE 20 MG TABLET PO SCH (17:05)
== END 2024-01-26 18:35 | disposition home health service (06) | DRG 689 ==
LOC: ED 12:14 → ICU 19:30 → MEDSUR 01-25 20:36
PROVIDERS: ADMIT Internal Medicine; ATTEND Student in an Organized Health Care Education/Training Program

== ENCOUNTER 2024-12-07 14:25 | Inpatient (IN) ==
[2024-12-07] MEDS ORDERED: IOPAMIDOL 100 ML BOTTLE IV ONE (14:26)
[2024-12-07 15:54] LABS: Basophils # (Auto) 0.05 K/mcL (0.00-0.30); Basophils % (Auto) 0.9 % (0.0-2.0); Eosinophils # (Auto) 0.11 K/mcL (0.00-0.70); Eosinophils % (Auto) 1.9 % (0.0-7.0); Hematocrit 32.0 % (34.1-44.9); Hemoglobin 10.4 g/dL (11.2-15.7); Lymphocytes # (Auto) 0.87 K/mcL (1.50-4.80); Lymphocytes % (Auto) 15.2 % (15.5-49.0); Mean Corpuscular HGB Conc 32.5 g/dL (31.0-36.0); Monocytes # (Auto) 0.68 K/mcL (0.10-0.90); Monocytes % (Auto) 11.9 % (1.0-12.0); Neutrophils % (Auto) 64.9 % (38.0-78.0); Platelet Count 180 K/mcL (140-440); RBC 3.32 M/mcL (3.59-5.38); WBC 5.7 K/mcL (4.5-11.0)
[2024-12-07 16:14] LABS: ALT/SGPT 32 U/L (<40); AST/SGOT 28 U/L (<32); Albumin 3.2 gm/dL (3.2-5.2); Albumin/Globulin Ratio 1.1 (1.0-2.3); Alkaline Phosphatase 86 U/L (39-117); Anion Gap 18.0 (8.0-16.0); Bilirubin,Total 0.6 mg/dL (0.1-1.0); Blood Urea Nitrogen 43 mg/dL (8-23); Calcium 11.3 mg/dL (8.6-10.4); Carbon Dioxide 25 mmol/L (22-30); Chloride 89 mmol/L (96-108); Globulin 3.0 gm/dL (2.2-3.7); Glucose 114 mg/dL (70-105); Potassium 3.9 mmol/L (3.3-5.1); Sodium 132 mmol/L (133-145)
[2024-12-07] MEDS: IPRATROPIUM/ALBUTEROL 3 ML AMPUL.NEB NEB ONE (16:40)
[2024-12-07] MEDS: MAGNESIUM SULFATE 2 GM/50 ML BAG IV ONE (16:53)
[2024-12-07] MEDS: ASPIRIN 81 MG TAB.CHEW CHEWED ONE (16:59)
[2024-12-07] MEDS: 0.9 % SODIUM CHLORIDE 250 ML IV ONE ×2 (18:01→19:28)
[2024-12-07] MEDS ORDERED: MAGNESIUM SULFATE 2 GM/50 ML BAG IV PRN (21:00)
[2024-12-07] MEDS ORDERED: 0.9 % SODIUM CHLORIDE 250 ML IV PRN (21:00)
[2024-12-07] MEDS ORDERED: POTASSIUM CHLORIDE 40 MEQ in DEXTROSE 5% IN WATER 500 ML IV PRN (21:00)
[2024-12-07] MEDS ORDERED: POTASSIUM CHLORIDE 20 MEQ TABLET PO PRN ×2 (21:00)
[2024-12-07] MEDS ORDERED: METOCLOPRAMIDE 10 MG/2 ML VIAL IV PRN (21:00)
[2024-12-07] MEDS ORDERED: DOPamine 400 MG in PREMIX 1 BAG IV PRN ×3 (21:00→22:00)
[2024-12-07] MEDS ORDERED: SENNOSIDES 1 TABLET PO PRN (21:00)
[2024-12-07] MEDS: HEPARIN 5,000 UNIT/ML VIAL SQ SCH (22:00)
[2024-12-07] MEDS: FUROSEMIDE 100 MG/10 ML VIAL IV ONE ×2 (22:00→23:05)
[2024-12-07] MEDS: DOCUSATE SODIUM 100 MG CAPSULE PO SCH (22:00)
[2024-12-08] MEDS: ACETAMINOPHEN 325 MG TABLET PO PRN (03:28)
[2024-12-08 05:58] LABS: Basophils # (Auto) 0.04 K/mcL (0.00-0.30); Basophils % (Auto) 0.8 % (0.0-2.0); Eosinophils # (Auto) 0.15 K/mcL (0.00-0.70); Eosinophils % (Auto) 3.0 % (0.0-7.0); Hematocrit 28.4 % (34.1-44.9); Hemoglobin 9.3 g/dL (11.2-15.7); Lymphocytes # (Auto) 0.76 K/mcL (1.50-4.80); Lymphocytes % (Auto) 15.2 % (15.5-49.0); Mean Corpuscular HGB Conc 32.7 g/dL (31.0-36.0); Monocytes # (Auto) 0.66 K/mcL (0.10-0.90); Monocytes % (Auto) 13.2 % (1.0-12.0); Neutrophils % (Auto) 63.0 % (38.0-78.0); Platelet Count 156 K/mcL (140-440); RBC 2.94 M/mcL (3.59-5.38); WBC 5.0 K/mcL (4.5-11.0)
[2024-12-08 06:11] LABS: ALT/SGPT 27 U/L (<40); AST/SGOT 23 U/L (<32); Albumin 2.9 gm/dL (3.2-5.2); Albumin/Globulin Ratio 1.2 (1.0-2.3); Alkaline Phosphatase 78 U/L (39-117); Anion Gap 15.0 (8.0-16.0); Bilirubin,Direct 0.2 mg/dL (<0.3); Bilirubin,Total 0.4 mg/dL (0.1-1.0); Blood Urea Nitrogen 45 mg/dL (8-23); Calcium 10.5 mg/dL (8.6-10.4); Carbon Dioxide 27 mmol/L (22-30); Chloride 91 mmol/L (96-108); Globulin 2.5 gm/dL (2.2-3.7); Glucose 118 mg/dL (70-105); Phosphorous 3.5 mg/dL (2.5-4.5); Potassium 3.7 mmol/L (3.3-5.1); Sodium 133 mmol/L (133-145); Triglycerides 142 mg/dL (<150); Uric Acid 18.1 mg/dL (2.5-8.0)
[2024-12-08] MEDS: ALBUMIN HUMAN 12.5 GM/50 ML VIAL IV ONE (08:29)
[2024-12-08] MEDS: FUROSEMIDE 100 MG/10 ML VIAL IV SCH (08:30)
[2024-12-08] MEDS: 0.9 % SODIUM CHLORIDE 250 ML IV ONE (08:36)
[2024-12-08] MEDS: cefTRIAXone 1 GM VIAL IV SCH (09:25)
[2024-12-08 09:54] LABS: Bacteria,Urine Mod /hpf (0); Bilirubin,Urine Negative (Negative); Color,Urine Yellow; Glucose,Urine (UA) Negative (Negative); Ketones,Urine Trace mg/dL (Negative); Leukocyte Esterase,Urine Trace /uL (Negative); PH,Urine 5.5 (5.0-9.0); Protein,Urine Negative (Negative); Specific Gravity,Urine <= 1.005 (1.000-1.035); Urobilinogen,Urine Normal
[2024-12-08] MEDS: GABAPENTIN 300 MG CAPSULE PO SCH (09:59)
[2024-12-08] MEDS: NICOTINE 21 MG PATCH TOPICAL SCH (09:59)
[2024-12-08] MEDS: POLYETHYLENE GLYCOL 3350 17 GM PACKET PO PRN (09:59)
[2024-12-08] MEDS ORDERED: ALBUTEROL SULFATE 60 PUFF INHALER INH PRN ×2 (10:42→10:43)
[2024-12-08] MEDS: GLYCOPYRROLATE INH SCH (14:53)
[2024-12-08] MEDS: FORMOTEROL INH SCH (14:53)
[2024-12-08] MEDS: BUDESONIDE INH SCH (14:53)
[2024-12-08] MEDS ORDERED: ALBUMIN HUMAN 12.5 GM/50 ML VIAL IV ONE (16:00)
[2024-12-08] MEDS: 0.9 % SODIUM CHLORIDE 1,000 ML IV ONE (19:18)
[2024-12-08] MEDS: ATORVASTATIN 40 MG TABLET PO SCH (21:05)
[2024-12-08] MEDS: ASPIRIN 81 MG TAB.CHEW PO SCH (21:05)
[2024-12-08] MEDS: 0.9 % SODIUM CHLORIDE 1,000 ML IV SCH (22:51)
[2024-12-08] MEDS: IPRATROPIUM/ALBUTEROL 3 ML AMPUL.NEB NEB PRN (23:35)
[2024-12-09 06:08] LABS: Basophils # (Auto) 0.05 K/mcL (0.00-0.30); Basophils % (Auto) 1.0 % (0.0-2.0); Eosinophils # (Auto) 0.19 K/mcL (0.00-0.70); Eosinophils % (Auto) 3.7 % (0.0-7.0); Hematocrit 26.3 % (34.1-44.9); Hemoglobin 8.7 g/dL (11.2-15.7); Lymphocytes # (Auto) 0.93 K/mcL (1.50-4.80); Lymphocytes % (Auto) 18.2 % (15.5-49.0); Mean Corpuscular HGB Conc 33.1 g/dL (31.0-36.0); Monocytes # (Auto) 0.57 K/mcL (0.10-0.90); Monocytes % (Auto) 11.1 % (1.0-12.0); Neutrophils % (Auto) 59.4 % (38.0-78.0); Platelet Count 164 K/mcL (140-440); RBC 2.71 M/mcL (3.59-5.38); WBC 5.1 K/mcL (4.5-11.0)
[2024-12-09 06:28] LABS: ALT/SGPT 21 U/L (<40); AST/SGOT 19 U/L (<32); Albumin 2.6 gm/dL (3.2-5.2); Albumin/Globulin Ratio 1.0 (1.0-2.3); Alkaline Phosphatase 78 U/L (39-117); Anion Gap 14.0 (8.0-16.0); Bilirubin,Direct < 0.2 mg/dL (0-0.3); Bilirubin,Total 0.3 mg/dL (0.1-1.0); Blood Urea Nitrogen 46 mg/dL (8-23); Calcium 10.1 mg/dL (8.6-10.4); Carbon Dioxide 26 mmol/L (22-30); Chloride 94 mmol/L (96-108); Globulin 2.6 gm/dL (2.2-3.7); Glucose 114 mg/dL (70-105); Phosphorous 3.3 mg/dL (2.5-4.5); Potassium 3.5 mmol/L (3.3-5.1); Sodium 134 mmol/L (133-145); Triglycerides 134 mg/dL (<150); Uric Acid 16.6 mg/dL (2.5-8.0)
[2024-12-09] MEDS ORDERED: VANCOMYCIN PER PHARMACY IV SCH (06:45)
[2024-12-09 07:43] LABS: C-Reactive Protein 13.90 mg/dL (0.03-0.80)
[2024-12-09] MEDS: PIPERACILLIN SODIUM/TAZOBACTAM 4.5 GM in DEXTROSE 5% IN WATER 50 ML IV ONE (07:58)
[2024-12-09] MEDS: VANCOMYCIN 750 MG in 0.9 % SODIUM CHLORIDE 250 ML IV ONE (08:50)
[2024-12-09] MEDS: 0.9 % SODIUM CHLORIDE 1,000 ML IV SCH (08:52)
[2024-12-09] MEDS: 0.9 % SODIUM CHLORIDE 500 ML IV ONE (11:23)
[2024-12-09 12:00] LABS: Bilirubin,Urine Negative (Negative); Color,Urine YELLOW; Glucose,Urine (UA) Negative (Negative); Ketones,Urine Negative (Negative); Leukocyte Esterase,Urine 25 /uL (Negative); Mucus,Urine FEW /hpf; PH,Urine 5.0 (5.0-9.0); Protein,Urine Negative (Negative); Specific Gravity,Urine 1.026 (1.000-1.035); Urobilinogen,Urine Negative
[2024-12-09] MEDS ORDERED: PIPERACILLIN SODIUM/TAZOBACTAM 4.5 GM in DEXTROSE 5% IN WATER 100 ML IV SCH (12:00)
[2024-12-09] MEDS: DEXTROSE 5% IV SCH (12:35)
[2024-12-09] MEDS: TAZOBACTAM IV SCH (12:35)
[2024-12-09] MEDS: PIPERACILLIN SODIUM IV SCH (12:35)
[2024-12-09] MEDS: WATER IV SCH (12:35)
[2024-12-09] MEDS: ONDANSETRON 4 MG/2 ML VIAL IV PRN (16:49)
[2024-12-10 06:48] LABS: Vancomycin,Random 7.4 ug/mL
[2024-12-10 07:44] LABS: Basophils # (Auto) 0.05 K/mcL (0.00-0.30); Basophils % (Auto) 1.0 % (0.0-2.0); Eosinophils # (Auto) 0.14 K/mcL (0.00-0.70); Eosinophils % (Auto) 2.7 % (0.0-7.0); Hematocrit 25.0 % (34.1-44.9); Hemoglobin 8.0 g/dL (11.2-15.7); Lymphocytes # (Auto) 0.98 K/mcL (1.50-4.80); Lymphocytes % (Auto) 19.1 % (15.5-49.0); Mean Corpuscular HGB Conc 32.0 g/dL (31.0-36.0); Monocytes # (Auto) 0.58 K/mcL (0.10-0.90); Monocytes % (Auto) 11.3 % (1.0-12.0); Neutrophils % (Auto) 59.3 % (38.0-78.0); Platelet Count 160 K/mcL (140-440); RBC 2.54 M/mcL (3.59-5.38); WBC 5.1 K/mcL (4.5-11.0)
[2024-12-10 07:53] LABS: ALT/SGPT 19 U/L (<40); AST/SGOT 17 U/L (<32); Albumin 2.3 gm/dL (3.2-5.2); Albumin/Globulin Ratio 0.9 (1.0-2.3); Alkaline Phosphatase 81 U/L (39-117); Anion Gap 11.0 (8.0-16.0); Bilirubin,Direct < 0.2 mg/dL (0-0.3); Bilirubin,Total < 0.2 mg/dL (0.1-1.0); Blood Urea Nitrogen 47 mg/dL (8-23); C-Reactive Protein 11.80 mg/dL (0.03-0.80); Calcium 9.5 mg/dL (8.6-10.4); Carbon Dioxide 25 mmol/L (22-30); Chloride 98 mmol/L (96-108); Globulin 2.6 gm/dL (2.2-3.7); Glucose 148 mg/dL (70-105); Phosphorous 2.3 mg/dL (2.5-4.5); Potassium 3.9 mmol/L (3.3-5.1); Sodium 134 mmol/L (133-145); Triglycerides 101 mg/dL (<150); Uric Acid 13.3 mg/dL (2.5-8.0)
[2024-12-10] MEDS: DOXYCYCLINE 100 MG in DEXTROSE 5% IN WATER 100 ML IV SCH (10:34)
[2024-12-11 06:37] LABS: Basophils # (Auto) 0.05 K/mcL (0.00-0.30); Basophils % (Auto) 1.0 % (0.0-2.0); Eosinophils # (Auto) 0.14 K/mcL (0.00-0.70); Eosinophils % (Auto) 2.7 % (0.0-7.0); Hematocrit 26.1 % (34.1-44.9); Hemoglobin 8.3 g/dL (11.2-15.7); Lymphocytes # (Auto) 0.94 K/mcL (1.50-4.80); Lymphocytes % (Auto) 18.3 % (15.5-49.0); Mean Corpuscular HGB Conc 31.8 g/dL (31.0-36.0); Monocytes # (Auto) 0.67 K/mcL (0.10-0.90); Monocytes % (Auto) 13.1 % (1.0-12.0); Neutrophils % (Auto) 56.7 % (38.0-78.0); Platelet Count 163 K/mcL (140-440); RBC 2.65 M/mcL (3.59-5.38); WBC 5.1 K/mcL (4.5-11.0)
[2024-12-11 07:13] LABS: C-Reactive Protein 9.7 mg/dL (0.03-0.80)
[2024-12-11 07:14] LABS: Albumin 2.4 gm/dL (3.2-5.2); Anion Gap 10.0 (8.0-16.0); Blood Urea Nitrogen 44.0 mg/dL (8-23); Calcium 9.4 mg/dL (8.6-10.4); Carbon Dioxide 23.0 mmol/L (22-30); Chloride 99.0 mmol/L (96-108); Glucose 104.0 mg/dL (70-105); Phosphorous 2.4 mg/dL (2.5-4.5); Potassium 4.1 mmol/L (3.3-5.1); Sodium 132.0 mmol/L (133-145)
[2024-12-11] MEDS ORDERED: BENZOCAINE ONE 20% 1 SPRAY TOPICAL PRN (13:39)
[2024-12-12 07:56] LABS: Albumin 2.6 gm/dL (3.2-5.2); Anion Gap 11.0 (8.0-16.0); Blood Urea Nitrogen 39.0 mg/dL (8-23); Calcium 10.2 mg/dL (8.6-10.4); Carbon Dioxide 25.0 mmol/L (22-30); Chloride 97.0 mmol/L (96-108); Glucose 107.0 mg/dL (70-105); Phosphorous 3.5 mg/dL (2.5-4.5); Potassium 4.1 mmol/L (3.3-5.1); Sodium 133.0 mmol/L (133-145)
[2024-12-12 08:00] LABS: Basophils # (Auto) 0.07 K/mcL (0.00-0.30); Basophils % (Auto) 1.2 % (0.0-2.0); Eosinophils # (Auto) 0.16 K/mcL (0.00-0.70); Eosinophils % (Auto) 2.7 % (0.0-7.0); Hematocrit 27.8 % (34.1-44.9); Hemoglobin 8.9 g/dL (11.2-15.7); Lymphocytes # (Auto) 0.89 K/mcL (1.50-4.80); Lymphocytes % (Auto) 15.3 % (15.5-49.0); Mean Corpuscular HGB Conc 32.0 g/dL (31.0-36.0); Monocytes # (Auto) 0.57 K/mcL (0.10-0.90); Monocytes % (Auto) 9.8 % (1.0-12.0); Neutrophils % (Auto) 59.1 % (38.0-78.0); Platelet Count 192 K/mcL (140-440); RBC 2.83 M/mcL (3.59-5.38); WBC 5.8 K/mcL (4.5-11.0)
[2024-12-12] MEDS: BUMETANIDE 1 MG/4 ML VIAL IV ONE ×2 (11:00→11:08)
[2024-12-12] MEDS: METOPROLOL TARTRATE 5 MG/5 ML VIAL IV PRN (16:31)
[2024-12-12] MEDS ORDERED: DEXMEDETOMIDINE 400 MCG in PREMIX 1 BAG IV PRN (20:00)
[2024-12-12] MEDS ORDERED: NOREPINEPHRINE 250 ML IV PRN (20:00)
[2024-12-12] MEDS: 0.9 % SODIUM CHLORIDE 250 ML IV SCH (21:08)
[2024-12-13 05:56] LABS: Albumin 2.4 gm/dL (3.2-5.2); Anion Gap 12.0 (8.0-16.0); Blood Urea Nitrogen 35 mg/dL (8-23); Calcium 10.1 mg/dL (8.6-10.4); Carbon Dioxide 27 mmol/L (22-30); Chloride 97 mmol/L (96-108); Glucose 102 mg/dL (70-105); Phosphorous 3.7 mg/dL (2.5-4.5); Potassium 3.7 mmol/L (3.3-5.1); Sodium 136 mmol/L (133-145)
[2024-12-13 06:46] LABS: Basophils # (Auto) 0.06 K/mcL (0.00-0.30); Basophils % (Auto) 1.0 % (0.0-2.0); Eosinophils # (Auto) 0.13 K/mcL (0.00-0.70); Eosinophils % (Auto) 2.2 % (0.0-7.0); Hematocrit 26.3 % (34.1-44.9); Hemoglobin 8.5 g/dL (11.2-15.7); Lymphocytes # (Auto) 1.08 K/mcL (1.50-4.80); Lymphocytes % (Auto) 18.5 % (15.5-49.0); Mean Corpuscular HGB Conc 32.3 g/dL (31.0-36.0); Monocytes # (Auto) 0.60 K/mcL (0.10-0.90); Monocytes % (Auto) 10.3 % (1.0-12.0); Neutrophils % (Auto) 59.3 % (38.0-78.0); Platelet Count 208 K/mcL (140-440); RBC 2.70 M/mcL (3.59-5.38); WBC 5.8 K/mcL (4.5-11.0)
[2024-12-13] MEDS: 0.9 % SODIUM CHLORIDE 250 ML IV SCH (12:48)
[2024-12-14 06:38] LABS: Albumin 2.5 gm/dL (3.2-5.2); Anion Gap 10.0 (8.0-16.0); Blood Urea Nitrogen 28 mg/dL (8-23); Calcium 10.0 mg/dL (8.6-10.4); Carbon Dioxide 28 mmol/L (22-30); Chloride 98 mmol/L (96-108); Glucose 102 mg/dL (70-105); Phosphorous 3.2 mg/dL (2.5-4.5); Potassium 4.0 mmol/L (3.3-5.1); Sodium 136 mmol/L (133-145)
[2024-12-15 06:18] LABS: Basophils # (Auto) 0.07 K/mcL (0.00-0.30); Basophils % (Auto) 1.0 % (0.0-2.0); Eosinophils # (Auto) 0.13 K/mcL (0.00-0.70); Eosinophils % (Auto) 1.8 % (0.0-7.0); Hematocrit 29.8 % (34.1-44.9); Hemoglobin 9.3 g/dL (11.2-15.7); Lymphocytes # (Auto) 1.47 K/mcL (1.50-4.80); Lymphocytes % (Auto) 20.7 % (15.5-49.0); Mean Corpuscular HGB Conc 31.2 g/dL (31.0-36.0); Monocytes # (Auto) 0.68 K/mcL (0.10-0.90); Monocytes % (Auto) 9.6 % (1.0-12.0); Neutrophils % (Auto) 60.7 % (38.0-78.0); Platelet Count 220 K/mcL (140-440); RBC 3.02 M/mcL (3.59-5.38); WBC 7.1 K/mcL (4.5-11.0)
[2024-12-15 06:31] LABS: Anion Gap 10.0 (8.0-16.0); Blood Urea Nitrogen 24 mg/dL (8-23); Calcium 9.6 mg/dL (8.6-10.4); Carbon Dioxide 26 mmol/L (22-30); Chloride 100 mmol/L (96-108); Glucose 96 mg/dL (70-105); Potassium 4.2 mmol/L (3.3-5.1); Sodium 136 mmol/L (133-145)
[2024-12-15] MEDS: SPIRONOLACTONE 25 MG TABLET PO SCH (09:02)
[2024-12-15] MEDS: HEPARIN 10 UNITS/ML 5ML FLUSH IV SCH (10:00)
[2024-12-15] MEDS: 0.9 % SODIUM CHLORIDE 10 ML SYRINGE IV SCH (10:01)
[2024-12-15 13:19] VITALS: TEMP 97.8
[2024-12-15 15:10] LABS: Sars-cov2 IGG Nucleocapsid, QL POSITIVE
[2024-12-15 17:50] VITALS: O2SAT 91
== END 2024-12-15 17:05 | disposition short-term general hospital (02) | DRG 291 ==
LOC: ED 14:25 → ICU 20:56
PROVIDERS: ADMIT Internal Medicine; ATTEND Internal Medicine